=== PATIENT | female | born 2000 | race Caucasian/White ===

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

== ENCOUNTER 2021-05-31 17:02 | Emergency (ER) | payer OTHER, SELFPAY ==
--- NOTE | ~2021-05-31 | XR_ITS ---
EXAMINATION: XR wrist RT min 3V DATE: 05/31/2021 17:35 INDICATION: Right wrist injury and pain. TECHNIQUE: 4 views of right wrist were obtained. COMPARISON: None. FINDINGS: Bone alignment is normal. No fracture. Joint spaces are well maintained. IMPRESSION: 1. Normal right wrist. Reviewed, dictated and finalized at location A. IMPRESSION: 1. Normal right wrist.
--- NOTE | ~2021-05-31 | XR_ITS ---
EXAMINATION: XR hand RT min 3V DATE: 05/31/2021 17:35 INDICATION: Right hand pain. TECHNIQUE: 3 views of right hand were obtained. COMPARISON: None. FINDINGS: Bone alignment is normal. No fracture. Joint spaces are well maintained. IMPRESSION: 1. Normal right hand. Reviewed, dictated and finalized at location A. IMPRESSION: 1. Normal right hand.
[2021-05-31 17:09] VITALS: BP 129/82; PULSE 84; RESP 18; TEMP 36.2; O2SAT 100
--- NOTE | 2021-05-31 17:27 | ED.UPPEXIN ---
HPI - Extremity Injury (Upper) General Chief Complaint: Extremity Injury, Upper <SARAY Bee Last Filed: 05/31/21 18:32> Stated Complaint: wrist pain <SARAY Bee Last Filed: 05/31/21 18:32> Time Seen by Provider: 05/31/21 17:06 <SARAY Bee Last Filed: 05/31/21 18:32> Source: patient <SARAY Bee Last Filed: 05/31/21 18:32> Mode of arrival: ambulatory <SARAY Bee Last Filed: 05/31/21 18:32> Limitations: no limitations <SARAY Bee Last Filed: 05/31/21 18:32> History of Present Illness HPI narrative: This is a 20 year old female that presents to the ER for right wrist injury sustained early this morning. Reports she was hunting and her bow snapped back at her. Reports it hit the right wrist. Reports bruising and pain to the area. Denies decreased ROM or numbness. <SARAY Bee Last Filed: 05/31/21 18:32> Related Data Home Medications: Home Medications Medication Instructions Recorded Confirmed aspirin 81 mg tablet,delayed 81 mg PO DAILY 01/15/21 01/15/21 release drospirenone (contraceptive) 4 mg 4 mg PO DAILY 01/15/21 01/15/21 (28) tablet <SARAY Bee Last Filed: 05/31/21 18:32> Allergies/Adverse Reactions: Allergies Allergy/AdvReac Type Severity Reaction Status Date / Time Penicillins Allergy Unknown Hives Verified 05/31/21 17:11 <SARAY Bee Last Filed: 05/31/21 18:32> Review of Systems Review of Systems: CONSTITUTIONAL: Denies fever MUSCULOSKELETAL: Reports joint pain, and myalgia. NEUROLOGIC: Denies numbness <SARAY Bee Last Filed: 05/31/21 18:32> All systems reviewed & are unremarkable except as noted in HPI and below <SARAY Bee Last Filed: 05/31/21 18:32> [facility] Past Medical History Medical History: Medical History Anxiety Asthma Chronic pain of right wrist Environmental allergies Factor V deficiency <Angella Pitt PA-C - Last Filed: 05/31/21 18:32> Surgical History Surgical History: Surgical History History of placement of ear tubes 2001 <Angella Pitt PA-C - Last Filed: 05/31/21 18:32> Family History Family History: Family History Father Hypertension Mother Hypertension Depression Anxiety Sibling Diabetes mellitus Hypertension Anxiety Depression Grandparent Cerebrovascular accident <Angella Pitt PA-C - Last Filed: 05/31/21 18:32> Social History Social History: Social History Smoking status: Never smoker Alcohol intake: never Substance use: never Substance use type: does not use <Angella Pitt PA-C - Last Filed: 05/31/21 18:32> Exam Narrative: GENERAL: Well-appearing, well-nourished, and in no acute distress. HEAD: Normocephalic, atraumatic. EYES: EOMI. EXTREMITIES: Normal range of motion. No edema or obvious deformity. Normal radial pulses. Normal sensation SKIN: Warm, dry, no rash. NEURO: No focal deficits. Alert and oriented x3. 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 I was available for evaluation and consultation, I agree with the documentation as above <Juan David Murillo MD - Last Filed: 05/31/21 18:33> Vital Signs Vital signs: Vital Signs Temperature 36.2 C L 05/31/21 17:09 Pulse Rate 84 05/31/21 17:09 Respiratory Rate 18 05/31/21 17:09 Blood Pressure 129/82 05/31/21 17:09 Pulse Oximetry 100 05/31/21 17:09 Temperature 36.2 C L 05/31/21 17:09 Pulse Rate 84 05/31/21 17:09 Respiratory Rate 18 05/31/21 17:09
== END 2021-05-31 18:55 | disposition home or self-care (01) ==
PROVIDERS: Emergency Provider Emergency Medicine; PCP Family Medicine
DX: S60.211A Contusion of right wrist, initial encounter (principal); J45.909 Unspecified asthma, uncomplicated; D68.2 Hereditary deficiency of other clotting factors; Z79.82 Long term (current) use of aspirin; W22.8XXA Striking against or struck by other objects, initial encounter
CPT/HCPCS: 73110; 73130; 99283

== ENCOUNTER 2022-04-23 13:34 | Outpatient (CLI) | payer OTHER, SELFPAY ==
--- NOTE | 2022-04-24 11:43 | WPDPFTINT ---
PFT Procedure Performed PFT Procedure Performed Spirometry with Pre/Post Bronchodilator Plethysmography (Lung Vol) Diffusing Cap (DLCO) Flow Vol Loop PFT Interpretation Lung volumes were measured with the body plethysmography method. Lung volumes are unremarkable. Spirometry showed normal FVC and FEV1 but diminished mid expiratory flow rates and a diminished FEV1 to FVC ratio of 75% suggestive of mild obstructive airway disease. Following administration of a bronchodilator there was a borderline increase in FEV1 but the ratio FEV1/FVC increased to 81%. Lung diffusion capacity is within the normal range at 96% predicted. The flow volume loop is consistent with obstructive airway disease in the form of small airway dysfunction. Impression: Probable mild obstructive airway disease in the form of small airway disease with no significant response to bronchodilators. Lung diffusion capacity within the normal range.
== END 2022-04-23 13:35 | disposition home or self-care (01) ==
LOC: ANHPFT 13:35
PROVIDERS: PCP Family Medicine; Visit Provider Family Medicine
DX: J45.909 Unspecified asthma, uncomplicated (principal); Z87.09 Personal history of other diseases of the respiratory system; R94.2 Abnormal results of pulmonary function studies
CPT/HCPCS: 94060; 94726; 94729

== ENCOUNTER 2023-01-20 11:50 | Outpatient (CLI) | payer OTHER, SELFPAY ==
--- NOTE | ~2023-01-20 | XR_ITS ---
Left ankle Technique: AP, oblique, and lateral views were obtained. Clinical History: Swelling, difficulty ambulating Findings: No acute fracture or dislocation is seen. Osseous alignment is anatomic. Ankle mortise and other visualized joint spaces are preserved. Soft tissues are otherwise unremarkable. Impression: Unremarkable left ankle. Reviewed, dictated and finalized at location . Impression: Unremarkable left ankle.
--- NOTE | ~2023-01-20 | XR_ITS ---
Left foot Technique: AP, oblique, and lateral views were obtained. Clinical History: Swelling, difficulty ambulating Findings: No acute fracture or dislocation is seen. Osseous alignment is anatomic. Joint spaces are p reserved without erosive or degenerative change. Soft tissues are unremarkable. Impression: Unremarkable left foot radiographs. Reviewed, dictated and finalized at [facility]. Impression: Unremarkable left foot radiographs.
== END 2023-01-20 11:51 | disposition home or self-care (01) ==
PROVIDERS: PCP Family Medicine; Visit Provider Nurse Practitioner Psychiatric/Mental Health
DX: M79.672 Pain in left foot (principal)
CPT/HCPCS: 73610; 73630

== ENCOUNTER 2023-03-27 11:07 | Emergency (ER) | payer OTHER, SELFPAY ==
[2023-03-27] VITALS (9 sets, daily range): BP systolic 103–147; BP diastolic 71–101; PULSE 79–99; RESP 13–18; TEMP 36.3; O2SAT 97–100
--- NOTE | ~2023-03-27 | XR_ITS ---
EXAMINATION: XR chest 2V DATE: 03/27/2023 12:30 INDICATION: Shortness of breath TECHNIQUE: AP and lateral views of the chest are obtained. COMPARISON: None available FINDINGS: There are minimal airspace opacities of the left lower lobe. No pleural effusion or pneumot horax. The cardiomediastinal silhouette is normal. The visualized bones and soft tissues are unremark able. IMPRESSION: 1. Minimal airspace opacities of the left lower lobe, likely pneumonia. Reviewed, dictated and finalized at location A.
--- NOTE | 2023-03-27 11:44 | ECG_ITS ---
Measurements Intervals [place] Rate: 86 P: 26 OK: 135 QRS: 72 QRSD: 97 T: 35 QT: 375 QTc: 451 Interpretive Statements SINUS RHYTHM NONSPECIFIC T-WAVE ABNORMALITY ABNORMAL ECG NO PREVIOUS ECG AVAILABLE FOR COMPARISON Electronically Signed On 03-27-2023 12:42:43 CDT by Paddy Anaya M.D.
[2023-03-27 11:57] LABS: Basophils Absolute Auto 0.1 K/mm3 (0.0-0.1); Basophils Percent Auto 0.8 % (0.2-1.2); Eosinophils Absolute Auto 0.5 K/mm3 (0-0.3); Eosinophils Percent Auto 4.4 % (0-4.4); Hematocrit 43.9 % (37.0-47.0); Hemoglobin 14.2 g/dL (12.0-15.0); Immature Granulocyte Absolute 0.03 K/mm3 (0.00-0.031); Immature Granulocyte Percent A 0.3 % (0-0.5); Lymphocytes Absolute Auto 4.41 K/mm3 (0.9-3.2); Lymphocytes Percent Auto 40.2 % (18.3-44.2); Mean Corpuscular HGB Conc 32.3 g/dl (32-36); Mean Corpuscular Hemoglobin 28.1 pg (26-34); Mean Corpuscular Volume 86.8 fl (80-100); Mean Platelet Volume 10.6 fl (7.4-10.4); Monocytes Absolute Auto 0.8 K/mm3 (0.1-0.6); Monocytes Percent Auto 7.5 % (2.6-8.5); Neutrophils Absolute Auto 5.1 K/mm3 (1.3-6.7); Neutrophils Percent Auto 46.8 % (45.5-73.1); Platelet Count Result 379 k/mm3 (150-375); Red Blood Count 5.06 M/mm3 (4.2-5.4)
--- NOTE | 2023-03-27 12:12 | ED.SOB ---
HPI - SOB/Dyspnea General Chief Complaint: Shortness of Breath/Dyspnea Stated Complaint: hard to breath Time Seen by Provider: 03/27/23 11:27 Source: patient Mode of arrival: ambulatory Limitations: no limitations History of Present Illness HPI Narrative: Patient is a 22-year-old female who presents to the ED with report of shortness of breath. Patient reports having fairly constant feelings of shortness of breath over the last few days. She states that she feels as though it is difficult to take a deep breath. Denies actual pain with taking a deep breath. She feels like something is pressing on her chest which somewhat restricts her breathing. She has a Hx of asthma and has been using her inhaler more than usual over the last couple of days. She does report having a mild cough over the last couple of days, denies fevers. Denies lower extremity pain or swelling. Denies significant congestion. Denies abdominal pain, nausea, vomiting. Patient has history of factor V Leiden and takes aspirin 81 mg daily. She has never had a blood clot/PE/DVT, but was sent here from urgent care to rule out PE. Related Data Home Medications Medication Instructions Recorded Confirmed aspirin 81 mg tablet,delayed 81 mg PO DAILY 01/15/21 07/21/22 release drospirenone (contraceptive) 4 mg 4 mg PO DAILY 01/15/21 07/21/22 (28) tablet (Slynd) bupropion HCl 150 mg 24 hr tablet, 150 mg PO QAM 04/09/22 07/21/22 extended release citalopram 10 mg tablet 10 mg PO DAILY 07/21/22 07/21/22 Allergies Allergy/AdvReac Type Severity Reaction Status Date / Time Penicillins Allergy Unknown Hives Verified 03/27/23 11:43 Review of Systems Review of Systems: CONSTITUTIONAL: Denies fever, chills, or sweats. ENT: Denies rhinorrhea, congestion, sore throat. CARDIOVASCULAR: See HPI. RESPIRATORY: See HPI. GASTROINTESTINAL: Denies abdominal pain, nausea, vomiting. All systems reviewed & are unremarkable except as noted in HPI and below PMFSH Past Medical History Medical History ADHD Anxiety Asthma Chronic pain of right wrist Environmental allergies Factor V deficiency History of COVID-19 03/2021, 08/2021 PCOS (polycystic ovarian syndrome) Surgical History Surgical History History of placement of ear tubes 2001 Family History Family History Father Hypertension Mother Hypertension Depression Anxiety Sibling Diabetes mellitus Hypertension Anxiety Depression Grandparent Cerebrovascular accident Social History Social History Smoking status: Never smoker Alcohol intake: never Substance use: never Substance use type: does not use Lack of Transportation: No Lack of Food: Never True Current Housing: I Have Housing Concerned About Future Housing: No Difficulty Paying Gas/Electric Bills: YES Difficulty Paying for Meds: No Currently Unemployed: No Education: Associate Degree Difficulty w/ Childcare or Family Care: No Living arrangements: with family Occupation/Education: occupation Gender identity (if verbalized by the patient): Female Agree to blood products: Yes Exam Narrative: GENERAL: Well appearing, obese with a BMI of 37.1, non-toxic, in no acute distress. HEAD: Normocephalic, atraumatic. NECK: Supple. No adenopathy, no masses. RESPIRATORY: Airway patent, respirations nonlabored. Clear to auscultation bilaterally, no rales, rhonchi, wheezing. No significant focal lung sounds. CARDIOVASCULAR: Regular rate and rhythm without murmurs, rubs, or gallops. Radial pulses 2+ and equal bilaterally. ABDOMINAL: Soft, nontender, nondistended, no hepatosplenomegaly. Normoactive BS. MUSCULOSKELETAL: Moves all extremities. Strength/ROM intact without gross deform
[2023-03-27 12:27] LABS: Appearance Urine Clear (Clear); Bacteria Urine None Seen /hpf; Bilirubin Urine Negative (Negative); Blood Urine 3+ (Negative); Color Urine Yellow (Yellow); Glucose Urine UA Negative (Negative); Ketones Urine Negative (Negative); Leukocyte Esterase Ur Negative LEU/UL (Negative); Nitrate Urine Negative (Negative); Non Pathogenic Casts 0-2; Protein Urine Negative (Negative); Specific Grav Ur 1.003 (1.001-1.035); Squamous Epithelial Cell Urine None seen /hpf (Few); Urobilinogen Urine 0.2 mg/dL (<2.0); WBC Urine 0-5 /hpf
[2023-03-27 12:29] LABS: Add Urine Microscopic? YES
[2023-03-27 12:37] LABS: Troponin I < 0.012 ng/mL (0.000-0.034)
[2023-03-27 12:44] LABS: D Dimer 0.38 ug/mL (<0.48)
[2023-03-27 12:49] LABS: Alanine Aminotransferase 24 U/L (6-35); Albumin Level 4.7 g/dL (3.5-5.1); Alkaline Phosphatase 51 U/L (38-126); Anion Gap 9 mmol/L (8-16); Aspartate Amino Transferase 28 U/L (14-36); Bilirubin,Total 0.4 mg/dL (0.2-1.3); Blood Urea Nitrogen 6 mg/dL (7-17); Calcium 9.4 mg/dL (8.4-10.2); Carbon Dioxide 20 mmol/L (22-30); Chloride 107 mmol/L (98-107); Estimated CRCL calculation 147 ml/min; Estimated Glomerular Filt Rate > 60; Glucose 91 mg/dL (65-110); Potassium 3.7 mmol/L (3.4-5.0); Sodium 136 mmol/L (137-145)
== END 2023-03-27 14:17 | disposition home or self-care (01) ==
PROVIDERS: Preventive Medicine Aerospace Medicine; Emergency Provider Physician Assistant; PCP Family Medicine
DX: J18.9 Pneumonia, unspecified organism (principal); R06.00 Dyspnea, unspecified; R07.9 Chest pain, unspecified; J45.909 Unspecified asthma, uncomplicated; D68.51 Activated protein C resistance; E28.2 Polycystic ovarian syndrome; F90.9 Attention-deficit hyperactivity disorder, unspecified type; F41.9 Anxiety disorder, unspecified; Z86.16 Personal history of COVID-19; Z79.82 Long term (current) use of aspirin
CPT/HCPCS: 36415; 71046; 80053; 81001; 81025; 84484; 85025; 85380; 93005; 99284

== ENCOUNTER 2024-02-16 10:47 | Outpatient (CLI) | payer OTHER, SELFPAY ==
--- NOTE | ~2024-02-16 | MR_ITS ---
EXAMINATION: MR ankle RT wo con DATE: 02/16/2024 11:40 INDICATION: Right ankle sprain TECHNIQUE: Magnetic resonance imaging (MRI) of the right ankle was performed without intravenous cont rast. Sequences included sagittal, coronal, and axial proton-density weighted fast spin echo without and with fat saturation. COMPARISON: None. FINDINGS: Medial ankle ligaments: Deep and superficial deltoid ligaments as well as the spring ligament are normal. Lateral ankle ligaments: The anterior and posterior inferior tibiofibular ligaments are normal. There is mild thickening and m ild increased signal of the anterior talofibular ligament with mild surrounding edema consistent with moderate grade sprain. The calcaneofibular and posterior talofibular ligaments are normal. Tendons: Achilles tendon is normal. The peroneus longus and brevis tendons are normal. The tibialis anterior a nd extensor hallucis longus and extensor digitorum longus tendons are normal. Small amount of increas ed tenosynovial fluid extending along the normal tibialis posterior tendon sheath consistent with mil d tenosynovitis. The flexor digitorum longus and flexor hallucis longus tendons are normal. Plantar fascia: Plantar aponeurosis is normal. Bones/other: Bone alignment is normal. Small low signal intensity bone comment at the cuboid and lateral aspect of the talar dome. No reactive marrow edema, fracture or pathologic marrow replacing process. Joint spa long are normal. Fluid: Visualized amount fluid in the joint spaces. 14 x 11 x 7 mm multilobulated ganglion cyst extending at the posterolateral aspect of the ankle extending along the superficial margin of the posterior talof ibular ligament. IMPRESSION: 1. Moderate grade sprain of the anterior talofibular ligament. 2. Mild tenosynovitis along the normal tibialis posterior tendon. Reviewed, dictated and finalized at location B.
== END 2024-02-16 10:48 | disposition home or self-care (01) ==
PROVIDERS: PCP Family Medicine; Visit Provider Family Medicine
DX: S93.491A Sprain of other ligament of right ankle, initial encounter (principal); X58.XXXA Exposure to other specified factors, initial encounter
CPT/HCPCS: 73721

== ENCOUNTER 2024-03-29 15:45 | Outpatient (RCR) | payer OTHER, SELFPAY ==
--- NOTE | 2024-02-28 16:29 | OPREHPOC ---
Outpatient Therapy Plan of Care This is a Multidisciplinary Plan of Care that may contain components documented by all disciplines (PT, OT, and ST.) PT Problem 1 PT Problem #1 Knowledge Deficit PT Goal 1 Goal 1. Patient will perform independent HEP Target Visit 4 PT Problem 2 PT Problem #2 Pain PT Goal 1 Goal 1. Patient able to do all household and work related tasks with pain no higher than 1/10 Target Visit 10 PT Problem 3 PT Problem #3 Impaired Strength PT Goal 1 Goal 1. Patient will demo 5/5 right ankle strength in all planes in order to perform normal work function Target Visit 10 PT Problem 4 PT Problem #4 Impaired Range of Motion PT Goal 1 Goal 1. Patient will demo ankle range of motion equal to left in all planes Target Visit 10 PT Problem 5 PT Problem #5 Edema PT Goal 1 Goal 1. Figure 8 measurement will equal left Target Visit 10
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
--- NOTE | 2024-04-05 14:30 | PCPTNOTE ---
Patient canceled due to having class and meeting.
--- NOTE | 2024-04-12 16:11 | PCPTNOTE ---
Patient no showed to appointment this date. Called and spoke with patient stating she will not be able to come anytime before 4:00 in the future due to class schedule. Patient did state she could possibly come Wednesday- in the future. Patient will need future appointments rescheduled due to conflicting class schedule.
--- NOTE | 2024-04-24 13:24 | PCPTNOTE ---
Pt. no showed/no call this date.
--- NOTE | 2024-05-01 13:13 | PCPTNOTE ---
Patient called to cancel appointment 05/01/24 due to kidney stones.
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
--- NOTE | 2024-05-10 09:03 | PTOPDC ---
Assessment and note entered by Jessica Oden, DPT Evaluation Information Assessment Status Discharge - Pt Not Present ICD-10 Condition Codes (PT) M25.571 Other ICD-10 Condition Codes ( s93.499A, m25.371 PT) Subjective Information - Assessment PT Clinical Summary Patient has not attended therapy since 03/29/24 and has cancelled or no showed 6 appointments. Per attendance policy she will be discharged this date . Plan of Care PT Services Indicated No
== END 2024-05-10 09:39 | disposition home or self-care (01) ==
LOC: ANHGOSHPT 15:45
PROVIDERS: PCP Family Medicine; Visit Provider Orthopaedic Surgery
DX: S93.4 Sprain of ankle (principal); M25.371 Other instability, right ankle
CPT/HCPCS: 97110; 97161; 97530

== ENCOUNTER 2024-06-13 13:37 | Outpatient (CLI) | payer OTHER, SELFPAY ==
[2024-06-13 14:38] LABS: Strep Group A RT-PCR NOT DETECTED (Negative)
== END 2024-06-13 13:38 | disposition home or self-care (01) ==
LOC: ANHLAB 13:39
PROVIDERS: PCP Family Medicine; Visit Provider Family Medicine
DX: J02.9 Acute pharyngitis, unspecified (principal)
CPT/HCPCS: 87651

== ENCOUNTER 2024-11-21 09:23 | Outpatient (CLI) | payer OTHER, SELFPAY ==
--- OUTSIDE RECORDS SUMMARY | 2024-11-21 10:14 | XMS_ITS | Clinical Summary ---
Author Organization [facility] Address [address] [place] [address] Care Team Providers Care Field Irrigation Worker Name Role Phone Unavailable Primary Care Provider Unavailabl e Social History Tobacco Use Types Packs/Day Years Used Date Smoking Tobacco: Never Assessed Comments Unknown Sex and Gender Information Value Date Recorded Sex Assigned at Not on file Legal Sex Female 1:11 PM CDT Gender Identity Not on file Sexual Orientation Not on file Plan of Treatment Health Maintenance Due Date Last Done Comments Hepatitis C Virus (HCV) Screening 2000 Pap Smear 2021 Influenza Immunization (#1) 04/16/202408/18, 08/25/2016, 2015, Additional history exists SARS-COV-2 Immunization ( season) 2024 Respiratory Syncytial Virus (RSV) Immunization (Adult) (1 - 1-dose 75+ series) 2075 Hepatitis B Immunization Completed 001, 2000, 2000 Pneumococcal Immunization Combined Aged Out 11/23/2001, 02/11/2001, 2000, Additional history exists No longer eligible based on patient's age to complete this topic DTaP/Tdap/Td Immunization Discontinued 2011, 12/01/2005, 02/24/2002, Additional history exists TdaP Immunization Completed 12/08/2011 Human Papillomavirus (HPV) Immunization Completed 06/08/2013, 02/06/2013, 12/07/2012 Meningococcal Immunization (ACWY) Completed 09/14/2017, 09/14/2017, 12/07/2012 Rotavirus Immunization Aged Out No lo nger eligible based on patient's age to complete this topic
--- OUTSIDE RECORDS SUMMARY | 2024-11-21 10:14 | XMS_ITS ---
Author Organization [facility] Address [address] [place] [address] Care Team Providers Care Tie Up Worker Name Role Phone Richelle Wong Primary Care Provider [phone] Allergies Allergen (clinical drug ingredient) Drug/Non Drug Allergy documented on EMR Reaction Allergy Type Onset Date Status Penicillin Unknown Drug Allergy Active REASON FOR VISIT r/s from 07/10/24--Last seen 01/24/2024 Medications Medication SIG (Take, Route, Frequency, Duration) Notes Start Date End Date Status Progesterone 100 MG as directed Orally hasn't be en taking, but will be back on soon 01/24/24 Active Aspirin 81 MG 1 tablet Orally Once a day for 30 day(s) Active hydrOXYzine HCl 10 MG 1-2 tablet as need ed for sleep Orally Once a day for 30 days Active Dulera 200-5 MCG/ACT as directed Inhalation Active Vyvanse 50 MG 1 capsule in the morning Orally Once a day for 30 days 07/20/2024 Active Escitalopram Oxalate 10 MG 1 tablet Orally Once a day for 30 days Active Social History Sex Assigned At : Social History Observation Description Sex Assigned At Female Encounters Encounter Location Date Provider Diagnosis [address] [address] 07/20/2024 Richelle Wong Generalized anxiety disorder F41.1 ; Depression F32.9 ; ADHD (attention deficit hyperactivity disorder) F90.9 and Medication monitoring encounter Z51.81 Assessments Encounter Date Diagnosis (ICD Code) Assessment Notes Treatment Notes Treatment Clinical Notes Section Notes 07/20/2024 Generalized anxiety disorder (ICD-10 - F41.1) Continue PRN Encouraged therapy 07/20/2024 Depression (ICD-10 - F32.9) [place] agreement to continue current regimen as client reports doing well. 07/20/2024 ADHD (attention deficit hyperactivity disorder) (ICD-10 - F90.9) Discussed controlled sub. PDMP checked with no concerns. May look to increase for concentration s/p cardiology appts if/as appropriate. Discussed r/b/se in length. 07/20/2024 Medication monitoring encounter (ICD-10 - Z51.81) 07/20/2024 Other Reasons, potential benefits, potential risks, interactions and side effects of all medications were discussed. The Patient/Guardian asked appropriate questions, appeared to understand the answers, and decided to accept the treatment and continue being followed. Alternatives and expected course without treatment were reviewed. The Patient/Guardian is aware of the need to contact the office or return for an earlier appointment if any problems or concerns arise. May also contact the 24-hour crisis hotline ([facility]), refer to the closest emergency room or call 911 if new symptoms arise of existing symptoms worsen. The Patient/Guardian is aware that this would apply to symptoms like: suicidal ideation, homicidal ideation, high risk behaviors, manic symptoms, psychotic symptoms, physical symptoms, or any other symptoms that may be dangerous to self or others. Greater than 50% of time spent on coordination and counseling where psychopharmacology as well as psychotherapeutic interventions were discussed along with review of treatments in the past. Education provided concerning need for adequate hydration. Patient/Guardian verbalized understanding of education, treatment plan and follow up. This session was completed telephonically with client/parental/guard rafia consent: Unable to determine movement status, assess appearance, affect, AIMS, or vital signs. Plan Of Treatment Medication Medication Name Sig Start Date Stop Date Notes hydrOXYzine HCl 10 MG 1-2 tablet as need ed for sleep Orally Once a day for 30 days Vyvanse 50 MG 1 capsule in the mor kaitlynn Orally Once a day for 30 days 07/20/2024 Escitalopram Oxalate 10 MG 1 tablet Oral ly Once a day for 30 days Treatment Notes Assessment Notes Generalized anxiety disorder Continue PRN Encouraged therapy Depression [place] agreement to continue current regimen as client reports doing well. ADHD (attention deficit hype ractivity disorder) Discussed controlled sub. PDMP checked with no concerns. May look to increase for concentration s/p cardiology appts if/as appropriate. Discussed r/b/se in length. Other Reasons, potential benefits, potential risks, interactions and side effects of all medications were discussed. The Patient/Guardian asked appropriate questions, appeared to understand the answers, and decided to accept the treatment and continue being followed. Alternatives and expected course without treatment were reviewed. The Patient/Guardian is aware of the need to contact the office or return for an earlier appointment if any problems or concerns arise. May also contact the 24-hour crisis hotline ([facility]), refer to the closest emergency room or call 911 if new symptoms arise of existing symptoms worsen. The Patient/Guardian is aware that this would apply to symptoms like: suicidal ideation, homicidal ideation, high risk behaviors, manic symptoms, psychotic symptoms, physical symptoms, or any other symptoms that may be dangerous to self or others. Greater than 50% of time spent on coordination and counseling where psychopharmacology as well as psychotherapeutic interventions were discussed along with review of treatments in the past. Education provided concerning need for adequate hydration. Patient/Guardian verbalized understanding of education, treatment plan and follow up. This session was completed telephonically with client/parental/guardian consent: Unable to determine movement status, assess appearance, affect, AIMS, or vital signs. Next Appt Details Follow Up: 4 Weeks, Reason: Psych F/U, may be telehealth Progress Notes * Mei WONGOB: 0 (23 yo F)Acc No.[id number]:07/20/2024 Patient: Blossom VILLANUEVA Provider: Benito Wong, MSN, PAINT SPECIALIST, PATIENT SCHEDULING COORDINATOR-C :2000 A ge:23 Y S ex:Female Date:07/20/2024 Address:[address] [place] [address] , [facility] Subjective: * Chief Complaints: * r /s from 07/10/24--Last seen 01/24/2024 * HPI: D epression Screening: PHQ-9 L ittle interest or pleasure in doing things N ot at all, F eeling down, depressed, or hopeless S everal days, T rouble falling or staying asleep, or sleeping too much N early every day, F eeling tired or having little energy More than half the days, P oor appetite or overeating N ot at all, F eeling bad about yourself or that you are a failure, or have let yourself or your family down S everal days, T rouble concentrating on things, such as reading the newspaper or watching television M ore than half the days, M oving or speaking so slowly that other people could have noticed; or the opposite, being so fidgety or restless that you have been moving around a lot more than usual N ot at all, T houghts that you would be better off or of hurting yourself in some way N ot at all, T otal Score 9 , I nterpretation M ild Depression. I ntervention D epression Screening Findings P ositive, F ollow-Up for Depression N o Referral necessary, patient involved in behavioral health treatment .. S creening: [place]arton Suicide Severity Rating Scale (LF) D o you want to initiate with S creener form, 1 . Wish to be : Have you wished you were or wished you could go to sleep and not wake up? N o, 2 . Suicidal Thoughts: Have you actually had any thoughts of killing yourself? N o, 6 . Suicide Behaviour: Have you ever done anything,started to do anything, or prepared to end your life? N o, I nterpretation: L ow Risk. C SSRS Interpretation and Follow Up Plan: CSSRS Interpretation and Follow Up Plan. CSSRS Interpretation and Follow Up Plan C SSRS Screen documented using SF Y es, M oderate or High risk requires selection of a follow up plan C SSRS No/Low: intervention not needed at this time. P sychiatric Assessment - Current Symptoms: How ct. doing today? Client is a 23 yo F on the phone today stating things have been going okay. We are finishing up finals week in school. I am finishing up being sick with the flu. States has been seen by can crimper and has tests coming up. Depression: 2/10 Anxiety: 5/10 I get bad days, but still a lot better than before. Social: Has been out with friends at school events, talking with friends/family Reports continuing to work part-time at [employer] and in school Therapy: With her school, yes Anger/irritability: Denies Sleep: Still bad, but I also haven't been able to take the hydroxyzine because finals and not wanting to be tired, so it is on my, because it is good when I take it. Energy: All over the place really, but I am always on the go, busy. Concentration: Fair. Some days are better than others. Definitely night and day if I don't take the Vyvanse, but it is not as good as it used to be. Appetite: That is fine. Hallucinations/paranoia: Denies Drugs/ETOH: Rare ETOH, socially with friends, maybe one drink every couple months. Denies SI/HI. Medical changes/concerns: Denies, I am f/u with can crimper though. They know about my medications and are fine with it currently. Monitoring to see about POTS. . * ROS: P sych ROS: Constitutional D enies. E yes D enies. E ars/Nose/Mouth/Throat D enies. R espiratory D enies. A llergic/Immunologic D enies.?Cardiovascular D enies. G I D enies. G U D enies. M usculoskeletal D enies. N eurological D enies. I ntegumentary D enies. E ndocrine D enies.?Hematological/Lymphatic D enies. P sychiatric: Reports some trouble with concentration. * Medical History: * Surgical History: M yringotomy 2003, 2005 * Hospitalization/Major Diagno stic Procedure: * Family History: F ather: alive. M other: alive. 1 brother(s) , 1 sister(s) . . Mom: Bipolar, HTN, HLD, autoimmune disorder Dad: PTSD after war, unknown other medical history Siblings: ADHD, sister is prediabetic Family history of substance abuse including abusing stimulants per client. * Social History: P rimary Social History: L iving Arrangement L iving Arrangement: I ndependent Living lives in apartment with mom which client pays for, I s this a supportive environment? Y es. A lcohol Use A lcohol Use Frequency: M onthly or less. I llicit Substance Usage I llicit Substance Usage:?No. 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 * Medications: T akingDulera 200-5 MCG/ACT Aerosol as directed Inhalation Aspirin 81 MG Tablet Chewable 1 tablet Orally Once a day Progesterone 100 MG Capsule as directed Orally , Notes to Pharmacist: hasn't been taking, but will be back on soon 01/24/24ydrOXYzine HCl 10 MG Tablet 1-2 tablet as needed for sleep Orally Once a day Escitalopram Oxalate 10 MG Tablet 1 tablet Orally Once a day Vyvanse 50 MG Capsule 1 capsule in the morning Orally Once a day Medication List reviewed and reconciled with the patientTaking Dulera 200-5 MCG/ACT Aerosol as directed Inhalation Taking Aspirin 81 MG Tablet Chewable 1 tablet Orally Once a day Taking Progesterone 100 MG Capsule as directed Orally , Notes to Pharmacist: hasn't been taking, but will be back on soon 01/24/24Taking hydrOXYzine HCl 10 MG Tablet 1-2 tablet as needed for sleep Orally Once a day Taking Escitalopram Oxalate 10 MG Tablet 1 tablet Orally Once a day Taking Vyvanse 50 MG Capsule 1 capsule in the morning Orally Once a day Medication List reviewed and reconciled with the patient * Allergies: P enicillinno[Allergies Verified] Objective: * Vitals: * Examination: M ental Status Exam: SENSORIUM AND COGNITION Alert, Oriented to Person, Oriented to Place, Oriented to Time, Oriented to Situation. ATTENTION AND CONCENTRATION N o deficits. ATTITUDE AND BEHAVIOR Cooperative, Receptive. MEMORY Immediate, Recent, Remote. MOOD Euthymic. SPEECH QUANTITY Appropriate. SPEECH QUALITY Appropriate volume. THOUGHT PROCESS Coherent and goal directed. THOUGHT CONTENT Appropriate - WNL. SUICIDAL IDEATION Denies suicidal ideation. HOMICIDAL IDEATION Denies homicidal ideation. HALLUCINATIONS Denies hallucinations. INSIGHT Good. JUDGMENT Good. FUND OF KNOWLEDGE Good. ABILITY TO PARTICIPATE IN TREATMENT M oderate. WILLINGNESS TO PARTICIPATE IN TREATMENT High. E xam limited due to telephone eval. Assessment: * Assessment: 1. G eneralized anxiety disorder - F41.1 2 . D epression - F32.9 (Primary)? 3. A DHD (attention deficit hyperactivity disorder) - F90.9 4 .?Medication monitoring encounter - Z51.81 Plan: * Treatment: 2. G eneralized anxiety disorder Continue hydrOXYzine HCl Tablet, 10 MG, 1-2 tablet as needed for sleep, Orally, Once a day, 30 days, 60, Refills 0. Notes: Continue PRN Encouraged therapy 3. A DHD (attention deficit hyperactivity disorder) Refill Vyvanse Capsule, 50 MG, 1 capsule in the morning, Orally, Once a day, 30 days, 30 Capsule, Refills 0. Notes: Discussed controlled sub. PDMP checked with no concerns. May look to increase for concentration s/p cardiology appts if/as appropriate. Discussed r/b/se in length. 4. O thers Notes: Reasons, potential benefits, potential risks, interactions and side effects of all medications were discussed. The Patient/Guardian asked appropriate questions, appeared to understand the answers, and decided to accept the treatment and continue being followed. Alternatives and expected course without treatment were reviewed. The Patient/Guardian is aware of the need to contact the office or return for an earlier appointment if any problems or concerns arise. May also contact the 24-hour crisis hotline ([facility]), refer to the closest emergency room or call 911 if new symptoms arise of existing symptoms worsen. The Patient/Guardian is aware that this would apply to symptoms like: suicidal ideation, homicidal ideation, high risk behaviors, manic symptoms, psychotic symptoms, physical symptoms, or any other symptoms that may be dangerous to self or others. Greater than 50% of time spent on coordination and counseling where psychopharmacology as well as psychotherapeutic interventions were discussed along with review of treatments in the past. Education provided concerning need for adequate hydration. Patient/Guardian verbalized understanding of education, treatment plan and follow up. This session was completed telephonically with client/parental/guardian consent: Unable to determine movement status, assess appearance, affect, AIMS, or vital signs. * Recommended Wellness and Pre vention Guidelines: * S tatus A yuli L ast Done N ext Due A ction Taken N ONCOMPLIANT C ervical cancer screening - 1 09/20/2023 - N ONCOMPLIANT H IV screening - 1 09/20/2023 - * Procedure Codes: * Follow Up: 4 Weeks (Reason: Psych F/U, may be telehealth) * * ROLLER OPERATOR HOT MIX Sign off status: Completed true * Provider: Benito Wong, MSN, PAINT SPECIALIST, PATIENT SCHEDULING COORDINATOR-C Date: 09/20/2023 Generated for Zaheeri kailey/Gentry/eTransmitting on: 0 11/21/2024 10:14 AM CDT History and Physical Notes * HPI (History of Present Illness) Category Sub-Category Detail Notes Category Not es Depression Screening PHQ-9 Little inte rest or pleasure in doing things: Not at all Feeling down, depressed, or hopeless: Se veral days Trouble falling or staying asleep, or sl eeping too much: Nearly every day Feeling tired or having little energy: M ore than half the days Poor appetite or overeating: Not at all Feeling bad about yourself o r that you are a failure, or have let yourself or your family down: Several days Trouble concentrating on thi ngs, such as reading the newspaper or watching television: More than half the days Moving or speaking so slowly that other people could have noticed; or the opposite, being so fidgety or restless that you have been moving around a lot more than usual: Not at all Thoughts that you would be b markus off or of hurting yourself in some way: Not at all Total Score: 9 Interpretation: Mild Depression Intervention Depression Screening Findings: P ositive Follow-Up for Depression: No Referral necessary, patient involved in behavioral health treatment . Psychiatric Assessment - Current Symptoms How ct. doing today? Client is a 23 yo F on the phone today stating things have been going okay. We are finishing up finals week in school. I am finishing up being sick with the flu. States has been seen by can crimper and has tests coming up. Depression: 09/25 Anxiety: 12/23 I get bad days, but still a lot better than before. Social: Has been out with friends at school events, talking with friends/family Reports continuing to work part-time at [employer] and in school Therapy: With her school, yes Anger/irritability: Denies Sleep: Still bad, but I also haven't been able to take the hydroxyzine because finals and not wanting to be tired, so it is on my, because it is good when I take it. Energy: All over the place really, but I am always on the go, busy. Concentration: Fair. Some days are better than others. Definitely night and day if I don't take the Vyvanse, but it is not as good as it used to be. Appetite: That is fine. Hallucinations/paranoia: Denies Drugs/ETOH: Rare ETOH, socially with friends, maybe one drink every couple months. Denies SI/HI. Medical changes/concerns: Denies, I am f/u with can crimper though. They know about my medications and are fine with it currently. Monitoring to see about POTS. Screening [place]arton Suicide Severity Rating Scale (LF) Do you want to initiate with: Screener form 1. Wish to be : Have you wished you were or wished you could go to sleep and not wake up?: No 2. Suicidal Thoughts: Have you actually had any thoughts of killing yourself?: No 6. Suicide Behavior Question: Have you ever done anything,started to do anything, or prepared to end your life?: No Interpretation:: Low Risk Do Not Use CSSRS Interpretation and Follow Up Plan CSSRS Interpretation and Follow Up Plan CSSRS Screen documented using SF: Yes Moderate or High risk requir es selection of a follow up plan: CSSRS No/Low: intervention not needed at this time Examination Category Sub-Category Detail Notes Category Not es Mental Status Exam SENSORIUM AND COGNITION Alert, Oriented to Person, Oriented to Place, Oriented to Time, Oriented to Situation Exam limited due to telephone eval ATTENTION AND CONCENTRATION No deficits ATTITUDE AND BEHAVIOR Cooperative, Associate Professor Plant Pathology tive MEMORY Immediate, Recent, R emote MOOD Euthymic SPEECH QUANTITY Appropriate SPEECH QUALITY Appropriate volume THOUGHT PROCESS Coherent and goal di rected THOUGHT CONTENT Appropriate - WNL SUICIDAL IDEATION Denies suicidal idea tion HOMICIDAL IDEATION Denies homicidal leif ation HALLUCINATIONS Denies hallucination s INSIGHT Good JUDGMENT Good FUND OF KNOWLEDGE Good ABILITY TO PARTICIPATE IN TREATMENT Mode rate WILLINGNESS TO PARTICIPATE IN TREATMENT High
--- OUTSIDE RECORDS SUMMARY | 2024-11-21 10:14 | XMS_ITS | Clinical Summary ---
Author Organization [facility] [address] [facility] [address] [facility] [address] [place] [address] Care Team Providers Care Eight Section Blower Name Role Phone Patricia Almaraz MD Primary Care Provider Allergies Active Allergy Reactions Criticality Noted Date Comments Penicillins Hives Medium 02/08/2024 Medications No known medications Social History Tobacco Use Types Packs/Day Years Used Date Smoking Tobacco: Never Assessed Personal Safety Answer Date Recorded Have you ever been in or are you currently in a harmful physical or emotional relationship or is someone making you feel afraid or unsafe? 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 Gender Identity Not on file Sexual Orientation Not on file Obstetrics History Last Filed Vital Signs Vital Sign Reading Time Taken Comments Blood Pressure 141/86 02/08/2024 9:16 PM CDT Pulse 114 02/08/2024 9:16 PM CDT Temperature 36.8 C (98.2 F) 02/08/2024 9:16 PM CDT Respiratory Rate 18 02/08/2024 9:16 PM CDT Oxygen Saturation 100% 02/08/2024 9:16 PM CDT Inhaled Oxygen Concentration - - Weight 95.3 kg (210 lb) 02/08/2024 9:16 PM CDT Height 170.2 cm (5' 7 ) 02/08/2024 9:16 PM CDT Body Mass Index 32.89 02/08/2024 9:16 PM CDT Plan of Treatment Health Maintenance Due Date Last Done Comments Cervical Cancer Screening 2000 Depression Screening 2000 Hepatitis C Screening 2000 Regular Well Visit/Exam 18-64 2018 Covid-19 Vaccine (2023-2 5 season) 2024 01/25/2023, 05/24/2022 Influenza Vaccine (#1) 2024 , 09/14/2017, 08/25/2016, Additional history exists DTaP/Tdap/Td Vaccine (8 - Td or Tdap) 01/19/2032 01/18/2022, 12/08/2011, 12/01/2005, Additional history exists Hepatitis B Screening Completed 05/13/2001 , 2000, 2000 Pneumococcal vaccine <65 Completed 002, 02/11/2001, 2000, Additional history exists Varicella Vaccines Completed 06/04/2008, 08/12/2001 HPV Vaccines Completed 06/08/2013, 01/15, 12/07/2012 Insurance [id number] Care Teams Eight Section Blower Relationship Specialty Start Date End Date Patricia Almaraz MD PCP - General Family Practice 07/28/22
--- OUTSIDE RECORDS SUMMARY | 2024-11-21 10:14 | XMS_ITS | Referral Summary ---
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
--- OUTSIDE RECORDS SUMMARY | 2024-11-21 10:14 | XMS_ITS | Patient Health Record ---
Author Organization [facility] Address [address] [place] [address] Care Team Providers Care Culture Room Worker Name Role Phone Richelle Wong Primary Care Provider Connie Peck [phone] Allergies Allergen (clinical drug ingredient) Drug/Non Drug Allergy documented on EMR Reaction Allergy Type Onset Date Status Penicillin Unknown Drug Allergy Active Results Component Value Reference Range Notes 12 Panel Urine Drug Screen Reviewed date:02/10/2024 09:19:28 AM Interpretation: Performing Lab: Notes/Report: THC N MANDO N MOP (OPI) N AMP P MET N BAR N BZO N MDMA N MTD N OXY N PCP N BUP N Reason For Referral No Information Medications Medication SIG (Take, Route, Frequency, Duration) Notes Start Date End Date Status Vyvanse 50 MG 1 capsule in the morning Orally Once a day for 30 days 10/12/2024 Active Vyvanse 50 MG 1 capsule in the morning Orally Once a day for 30 days 09/14/2024 Active Dulera 200-5 MCG/ACT as directed Inhalation Active Aspirin 81 MG 1 tablet Orally Once a day for 30 day(s) Active Progesterone 100 MG as directed Orally hasn't be en taking, but will be back on soon 01/24/24 Active hydrOXYzine HCl 10 MG 1-2 tablet as need ed for sleep Orally Once a day for 30 days Active Vyvanse 50 MG 1 capsule in the morning Orally Once a day for 30 days 08/17/2024 Active Escitalopram Oxalate 10 MG 1 tablet Orally Once a day for 30 days Active Social History Tobacco Use: Social History Observation Description Date Details (start date - stop date) Never Smoker NA - NA Sex Assigned At : Social History Observation Description Sex Assigned At Female Dont use, Tobacco Use/Smoking Question Answer Notes Are you a nonsmoker Tobacco Control (Standard) Question Answer Notes Tobacco use: Nonsmoker Additional Findings: Tobacco non-user Current no nsmoker Problems Problem Type SNOMED Code ICD Code Onset Dates Problem Status W/U Status Risk Notes Problem Generalized anxiety disorder (56612645) Generalized anxiety disorder (F41.1) Active confirmed Problem Depression (661762425) Depression (F32.9) Active confirmed Problem Attention deficit hyperactivity disorder (615535165) ADHD (attention deficit hyperactivity disorder) (F90.9) Active confirmed Vital Signs Heart Rate 79 /min 01/24/2024 Respiratory Rate 14 /min 01/24/2024 Blood pressure diastolic 76 mm Hg 01/24/2024 Oximetry 98 % 01/24/2024 Height 66 in 01/24/2024 Blood pressure systolic 110 mm Hg 01/24/2024 Weight 229 lbs 01/24/2024 BMI 36.96 kg/m2 01/24/2024 Encounters Encounter Location Date Provider Diagnosis [address] [address] 02/07/2024 Richelle Wong [address] [address] 01/24/2024 Richelle Wong Generalized anxiety disorder F41.1 ; Depression F32.9 ; ADHD (attention deficit hyperactivity disorder) F90.9 and Medication monitoring encounter Z51.[address] [address] 07/20/2024 Richelle Wong Generalized anxiety disorder F41.1 ; Depression F32.9 ; ADHD (attention deficit hyperactivity disorder) F90.9 and Medication monitoring encounter Z51.81 [address] [place] [address] 08/15/2024 Richelle Wong Generalized anxiety disorder F41.1 ; Depression F32.9 ; ADHD (attention deficit hyperactivity disorder) F90.9 and Medication monitoring encounter Z51.81 Replaced By [facility] [address] [place] [address] 12/28/2023 Richelle Wong Depression F32.9 ; ADHD (attention deficit hyperactivity disorder) F90.9 and Generalized anxiety disorder F41.[address] [address] 02/03/2024 Richelle Katznnan [address] [address] 03/03/2024 Richelle Katznnan [address] [address] 07/03/2024 Richelle Wong Depression F32.9 and ADHD (attention deficit hyperactivity disorder) F90.[address] [address] 07/14/2024 Connie Peck ADHD (attention deficit hyperactivity disorder) F90.9 and Depression F32.9 Assessments Encounter Date Diagnosis (ICD Code) Assessment Notes Treatment Notes Treatment Clinical Notes Section Notes 12/28/2023 Depression (ICD-10 - F32.9) 01/24/2024 Generalized anxiety disorder (ICD-10 - F41.1) Continue PRN Encouraged therapy 07/14/2024 ADHD (attention deficit hyperactivity disorder) (ICD-10 - F90.9) 07/20/2024 Generalized anxiety disorder (ICD-10 - F41.1) Continue PRN Encouraged therapy 08/15/2024 Generalized anxiety disorder (ICD-10 - F41.1) Continue PRN Encouraged therapy 07/03/2024 Depression (ICD-10 - F32.9) 07/03/2024 ADHD (attention deficit hyperactivity disorder) (ICD-10 - F90.9) 07/14/2024 Depression (ICD-10 - F32.9) 08/15/2024 Depression (ICD-10 - F32.9) [place] agreement to continue current regimen as client reports doing well. 07/20/2024 Depression (ICD-10 - F32.9) [place] agreement to continue current regimen as client reports doing well. 01/24/2024 Depression (ICD-10 - F32.9) [place] agreement to continue current regimen as client reports doing well. 12/28/2023 ADHD (attention deficit hyperactivity disorder) (ICD-10 - F90.9) 01/24/2024 ADHD (attention deficit hyperactivity disorder) (ICD-10 - F90.9) Discussed controlled sub. PDMP checked with no concerns. May look to decrease back to 40mg if fatigue continues. Discussed r/b/se in length. 07/20/2024 ADHD (attention deficit hyperactivity disorder) (ICD-10 - F90.9) Discussed controlled sub. PDMP checked with no concerns. May look to increase for concentration s/p cardiology appts if/as appropriate. Discussed r/b/se in length. 08/15/2024 ADHD (attention deficit hyperactivity disorder) (ICD-10 - F90.9) Discussed controlled sub. PDMP checked with no concerns. May fill . Discussed r/b/se in length. 12/28/2023 Generalized anxiety disorder (ICD-10 - F41.1) 08/15/2024 Medication monitoring encounter (ICD-10 - Z51.81) 07/20/2024 Medication monitoring encounter (ICD-10 - Z51.81) 01/24/2024 Medication monitoring encounter (ICD-10 - Z51.81) 01/24/2024 Other Reasons, potential benefits, potential risks, interactions [...] May also contact the 24-hour crisis hotline ([facility]), refer to the closest emergency [...] of education, treatment plan and follow up. 07/20/2024 Other Reasons, potential benefits, potential risks, [...] May also contact the 24-hour crisis hotline ([facility]), refer to the closest emergency [...] This session was completed telephonically with client/parental/guard raifa consent: Unable to determine movement status, assess appearance, affect, AIMS, or vital signs. 08/15/2024 Other Reasons, potential benefits, potential risks, interactions [...] May also contact the 24-hour crisis hotline ([facility]), refer to the closest emergency [...] AIMS, or vital signs. Plan Of Treatment No Information Insurance Providers Payer Name Payer Address Payer Phone Subscriber Number Group Number Insured Name Patient Relationship to Insured Coverage Start Date Coverage End Date [facility] Attn Claims Department [address] [place] [address] [phone] [id number] Blossom Wong Self - patient is the insured 2 [facility] Attn Claims Department [address] [place] [address] [phone] [id number] Blossom Wong Self - patient is the insured 2 Medical (General) History Medical History History ICD Code PCOS Factor V Scar tissue on lungs s/p COVID-19 Surgical History Surgery Date(Month/Year) Myringotomy 2003, 2005
--- OUTSIDE RECORDS SUMMARY | 2024-11-21 10:14 | XMS_ITS ---
Author Organization [facility] Address [address] [place] [address] Care Team Providers Care Road Machine Operator Name Role Phone Richelle Wong Primary Care Provider Connie Peck [phone] REASON FOR VISIT refills Medications Medication SIG (Take, Route, Frequency, Duration) Notes Start Date End Date Status Escitalopram Oxalate 10 MG 1 tablet Oral ly Once a day for 6 days Active Vyvanse 50 MG 1 capsule in the mor kaitlynn Orally Once a day for 6 days 07/14/2024 Active Social History Sex Assigned At : Social History Observation Description Sex Assigned At Female Encounters Encounter Location Date Provider Diagnosis [address] [place] [address] 07/14/2024 Connie Peck ADHD (attention deficit hyperactivity disorder) F90.9 and Depression F32.9 Assessments Encounter Date Diagnosis (ICD Code) Assessment Notes Treatment Notes Treatment Clinical Notes Section Notes 07/14/2024 ADHD (attention deficit hyperactivity disorder) (ICD-10 - F90.9) 07/14/2024 Depression (ICD-10 - F32.9) Plan Of Treatment Medication Medication Name Sig Start Date Stop Date Notes Escitalopram Oxalate 10 MG 1 tablet Oral ly Once a day for 6 days Vyvanse 50 MG 1 capsule in the mor kaitlynn Orally Once a day for 6 days 07/14/2024 Progress Notes * Mei WONGOB: 0 (23 yo F)Acc No.[id number]:07/14/2024 Patient: Blossom VILLANUEVA :2000 A ge:23 Y S ex:Female Address:[facility] [facility] [place], [address] * Refills Refill Escitalopram Oxalate Tablet, 10 MG, Orally, 6 Tablet, 1 tablet, Once a day, 6 days, Refills=0 Refill Vyvanse Capsule, 50 MG, Orally, 6 Capsule, 1 capsule in the morning, Once a day, 6 days, Refills=0 * true * Date: Generated for Lilia bonner/Gentry/Ckitting on: 0 11/21/2024 10:14 AM CDT
--- OUTSIDE RECORDS SUMMARY | 2024-11-21 10:15 | XMS_ITS | CONTINUITY OF CARE DOCUMENT ---
Author Name tanvijose tanvijose Address Unknown Organization [facility] Address [address] [address] [facility] [address] [place] [address] Phone [phone] Care Team Providers Care Die Cutter Diamond Name Role Phone Osvaldo ARBOLEDA, Shukri Unavailable Patricia Almaraz MD Unavailable [phone] Patricia Almaraz MD Unavailable PROBLEMS Condition Status Date Provider Notes Near Syncope active Shukri Riley MD Asthma active Suhkri Riley MD ADHD active Shukri Riley MD Orthostatic hypotension active Shukri Riley MD Palpitations active Shukri Riley MD ENCOUNTERS Date Type Provider Location Encounter Diag nosis - In-person encounter Office Visit Shukri Riley MD [place] [facility] Near SyncopeAsthmaADHDOrthostatic hypotensionPalpitations VITAL SIGNS Date Observation Value Provider weight E&M 197 [lb_av] Olga garibay Body Mass Index (Ratio) 30.85 kg/m2 Bladimir Riley MD blood pressure, diastolic 96 mm[Hg] Reema Bryan blood pressure, systolic 138 mm[Hg] Ariela Bryan oxygen saturation, oximetry 100 % Amy Bryan pulse rate 107 /min Amy Bryan respiratory rate E&M 12 /min Amy Bryan weight E&M 197 [lb_av] Amy Irvin height E&M 67 [in_i] Amy Bryan blood pressure, cuff size regular Reema Bryan ALLERGIES Allergy Name Onset Date Reaction Criticality Status PENICILLIN High Criticality active HISTORY OF MEDICATION USE Medication Status Instructions Dates Provider Indications Com ments albuterol sulfate 90 mcg/actuation HFA aerosol inhaler active Inhale 2 puff as directed every six hours shortness of breath Amy Irvin Dulera 200-5 mcg/actuation HFA aerosol inhaler active 1 puff as directed twice a day Amymaria fernanda Bryan escitalopram oxalate 10 mg tablet active TAKE 1 TABLET BY MOUTH EVERY DAY Amymaria fernanda Bryan Vyvanse 50 mg capsule active 1 capsule by mouth once a day Amymaria fernanda Bryan INSURANCE PROVIDERS Payer name Policy type / Coverage type [place] [employer] party ID [employer] (2) Medicaid [id number] ADVANCE DIRECTIVES Name Date DISCUSSED - NO DECISION MADE TREATMENT PLAN Date Name Performer Cardiology Shukri Riley MD Cardiology Shurki iRley MD Cardiology Shukri Riley MD Cardiology Shukri Riley MD Cardiology Shukri Riley MD Date Name CRP, high sensitivit y IRON AND TOTAL IRON BINDING CAPACITY FERRITIN CBC (INCLUDES DIFF/P LT) HEMOGLOBIN A1c TSH, free T4, total T3 LIPID PANEL COMPREHENSIVE METABO LIC PANEL, W/EGFR PROBNP, N TERMINAL Monitor - Telemetry (Mobile Cardiac) Stress Routine Complete Echo
--- OUTSIDE RECORDS SUMMARY | 2024-11-21 10:15 | XMS_ITS ---
Author Organization [facility] Address [address] [place] [address] Care Team Providers Care Bore Miner Operator Name Role Phone Richelle Wong Primary Care Provider Allergies Allergen (clinical drug ingredient) Drug/Non Drug Allergy documented on EMR Reaction Allergy Type Onset Date Status Penicillin Unknown Drug Allergy Active REASON FOR VISIT 4 week F/U Medications Medication SIG (Take, Route, Frequency, Duration) [...] Female Encounters Encounter Location Date Provider Diagnosis [address] [place] [address] 08/15/2024 Richelle Wong Generalized anxiety disorder F41.1 ; Depression F32.9 ; ADHD (attention deficit hyperactivity disorder) F90.9 and Medication monitoring encounter Z51.81 Assessments Encounter Date Diagnosis (ICD Code) Assessment Notes Treatment Notes Treatment Clinical Notes Section Notes 08/15/2024 Generalized anxiety disorder (ICD-10 - F41.1) Continue PRN Encouraged therapy 08/15/2024 Depression (ICD-10 - F32.9) [place] agreement to continue current regimen as client reports doing well. 08/15/2024 ADHD (attention deficit hyperactivity disorder) (ICD-10 - F90.9) Discussed controlled sub. PDMP checked with no concerns. May fill . Discussed r/b/se in length. 08/15/2024 Medication monitoring encounter (ICD-10 - Z51.81) 08/15/2024 Other Reasons, potential benefits, potential risks, [...] May also contact the 24-hour crisis hotline ([facility]), refer to the closest emergency [...] Name Sig Start Date Stop Date Notes Vyvanse 50 MG 1 capsule in the mor kaitlynn Orally Once a day for 30 days 10/12/2024 Vyvanse 50 MG 1 capsule in the mor kaitlynn Orally Once a day for 30 days 09/14/2024 hydrOXYzine HCl 10 MG 1-2 tablet as need ed for sleep Orally Once a day for 30 days Vyvanse 50 MG 1 capsule in the mor kaitlynn Orally Once a day for 30 days 08/17/2024 Escitalopram Oxalate 10 MG 1 tablet Oral ly Once a day for 30 days Treatment Notes Assessment Notes Generalized anxiety disorder Continue PRN Encouraged therapy Depression [place] agreement to continue current regimen as client reports doing well. ADHD (attention deficit hype ractivity disorder) Discussed controlled sub. PDMP checked with no concerns. May fill . Discussed r/b/se in length. Other Reasons, potential [...] vital signs. Next Appt Details Follow Up: 3 Months, Reason: Psych F/U in-office Progress Notes * TIFFANIE MeiOB: 0 (24 yo F)Acc No.[id number]:08/15/2024 Patient: Blossom VILLANUEVA Provider: Benito Wong, NAZARIO, CREDIT CORRESPONDENCE CLERK, AUDITING CLERK-C :2000 A ge:24 Y S ex:Female Date:08/15/2024 Address:[address] [place] [address] , [address] [facility] Subjective: * Chief Complaints: * 4 week F/U * HPI: D epression Screening: PHQ-9 L [...] in behavioral health treatment .. S creening: [place] Suicide Severity Rating Scale (LF) D o [...] P sychiatric Assessment - Current Symptoms: How is ct doing today? Client is a 24 yo F on the phone today reporting things have been pretty normal. Medications/compliance/SE Reports she has been taking medications well, often forgets hydroxyzine, but states doing well otherwise, denies SE. Depression: 09/25 Anxiety: 10/23 Anger/irritability: Denies Hallucinations/paranoia: Denies Sleep: Awful as normal, but I haven't been taking the hydroxyzine because I forget and then it is too late. Appetite: Good Energy: A little lower but have been eating more carbs. Goals: School- states it has been going well, still on break Drugs/ETOH: Denies. Rare alcohol but none lately really. Therapy: With the school, yes Social: Talking with family and friends Suicidal ideation: Denies Homicidal ideation: Denies Medical changes/concerns: So far nothing new, still being assessed for POTS. . 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 * Medications: T akingDulera 200-5 MCG/ACT Aerosol as directed Inhalation Aspirin 81 MG Tablet Chewable 1 tablet Orally Once a day Progesterone 100 MG Capsule as directed Orally , Notes to Pharmacist: hasn't been taking, but will be back on soon 01/24/24Escitalopram Oxalate 10 MG Tablet 1 tablet Orally Once a day Vyvanse 50 MG Capsule 1 capsule in the morning Orally Once a day hydrOXYzine HCl 10 MG Tablet 1-2 tablet as needed for sleep Orally Once a day Taking Dulera 200-5 MCG/ACT Aerosol as directed Inhalation Taking Aspirin 81 MG Tablet Chewable 1 tablet Orally Once a day Taking Progesterone 100 MG Capsule as directed Orally , Notes to Pharmacist: hasn't been taking, but will be back on soon 01/24/24Taking Escitalopram Oxalate 10 MG Tablet 1 tablet Orally Once a day Taking Vyvanse 50 MG Capsule 1 capsule in the morning Orally Once a day Taking hydrOXYzine HCl 10 MG Tablet 1-2 tablet as needed for sleep Orally Once a day * Allergies: P sadiqicillinno[Allergies Verified] Objective: * Vitals: * Examination: M [...] Once a day, 30 days, 60, Refills 1. Notes: Continue PRN Encouraged therapy 3. A DHD (attention deficit hyperactivity disorder) Refill Vyvanse Capsule, 50 MG, 1 capsule in the morning, Orally, Once a day, 30 days, 30 Capsule, Refills 0; R efill Vyvanse Capsule, 50 MG, 1 capsule in the morning, Orally, Once a day, 30 days, 30 Capsule, Refills 0; R efill Vyvanse Capsule, 50 MG, 1 capsule in the morning, Orally, Once a day, 30 days, 30 Capsule, Refills 0. Notes: Discussed controlled sub. PDMP checked with no concerns. May fill . Discussed r/b/se in length. 4. O thers [...] May also contact the 24-hour crisis hotline ([facility]), refer to the closest emergency [...] appearance, affect, AIMS, or vital signs. * Procedure Codes: * Follow Up: 3 Months (Reason: Psych F/U in-office) * * MAKER HELPER Sign off status: Completed true * Provider: Benito Wong, MSN, CREDIT CORRESPONDENCE CLERK, AUDITING CLERK-C Date: Generated for Lilia bonner/Gentry/Ckitting on: 0 11/21/2024 10:14 AM CDT History [...] . Psychiatric Assessment - Current Symptoms How is ct doing today? Client is a 24 yo F on the phone today reporting things have been pretty normal. Medications/compliance/SE Reports she has been taking medications well, often forgets hydroxyzine, but states doing well otherwise, denies SE. Depression: 09/25 Anxiety: 10/23 Anger/irritability: Denies Hallucinations/paranoia: Denies Sleep: Awful as normal, but I haven't been taking the hydroxyzine because I forget and then it is too late. Appetite: Good Energy: A little lower but have been eating more carbs. Goals: School- states it has been going well, still on break Drugs/ETOH: Denies. Rare alcohol but none lately really. Therapy: With the school, yes Social: Talking with family and friends Suicidal ideation: Denies Homicidal ideation: Denies Medical changes/concerns: So far nothing new, still being assessed for POTS. Screening [place] Suicide Severity Rating Scale (LF) Do you [...] CONCENTRATION No deficits ATTITUDE AND BEHAVIOR Cooperative, Slitter Creaser Slotter Helper tive MEMORY Immediate, Recent, R emote MOOD Euthymic SPEECH QUANTITY Appropriate SPEECH QUALITY Appropriate volume THOUGHT PROCESS Coherent and goal di rected THOUGHT CONTENT Appropriate - WNL SUICIDAL IDEATION Denies suicidal idea tion HOMICIDAL IDEATION Denies homicidal lief ation HALLUCINATIONS Denies hallucination s INSIGHT Good JUDGMENT Good FUND OF KNOWLEDGE Good ABILITY TO PARTICIPATE IN TREATMENT Mode rate WILLINGNESS TO PARTICIPATE IN TREATMENT High
--- OUTSIDE RECORDS SUMMARY | 2024-11-21 10:15 | XMS_ITS | Data Portability ---
Author Organization [facility] Caro Address [address] [place] [place] [address] Care Team Providers Care Business Process Representative Name Role Phone LUCRECIA VANCE Primary Care Provider Assessment Encounter Date Assessment Date Assessment LastModified by Organization Details LastModified Time 05/01/2022 05/01/2022 check labs, consider metformin after reviewing labs, discussed traditional pop f/u by phone in 3 months or sooner if needed. discussed pap next year? 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 Lab culture, urine 2021 022 [facility] (Lab), [address], [place], [address], 06:15:52 test, urine 2021 022 [email or web address] 1 [address], [place], [address], 12:21:57 urinalysis , dipstick 2021 022 [email or web address] 1 [address], [address], [place], [address], 2 12:23:25 Referral None recorded. Procedures None recorded. Surgeries None recorded. Imaging US, pelvis 2022 023 [email or web address] [address], [address], [place], [address], 3 20:28:26 US, pelvis, complete 2022 023 [email or web address] 1 [facility], [address], [place], [address], 3 19:42:48 US, pelvis 2020 021 [email or web address] [facility], [address], [address], [place], [address], 17:12:47 US, abdomen 2020 021 [email or web address] Not available 14:45:07 Medication Orders Katerine 0.35 mg tablet 2021 022 Y[facility], [address] [facility], [place], [address], 2 12:50:31 Slynd 4 mg (28) tablet 2020 021 [email or web address] [facility], [address] [place], [address], 3 12:26:18 Patient TargetsNo targets recorded. Patient InstructionsNo instructions recorded. Reason for Referral None Reported. Results Created Date Observation Date Name Description Value Unit Range Abnormal Flag Note LastModifiedBy Organization Detail LastModifiedTime 05/01/2005/01/2022 CULTU RE: URINE result report SEE RESULT S BELOW Test: Cultu re: Urine Speci men Sourc e: Urine Voide d Speci men Type: Urine Speci men Date: 2021 1:39 PM Resul t Date: 2021 5:12 AM Resul t Statu s: Final resul t Abnor mal: No Resul larisa Lab: [facility] [address] [facility] [address] Tel: CULTU RE ----- ----- ----- --- No growt h in 1 day (dete ction level of 10,00 0 colon ies / ml.) Not Available [facility] [address] [place], [address], 05/03/2022 06:15:52 05/01/20 22 05/01/2022 urina lysis , dipst ick Leukocytes +2 Not Available [facility] [address], [place], [address], 05/01/2022 12:22:18 05/01/20 22 05/01/2022 urina lysis , dipst ick Nitrite normal Not Available [facility] [address], [place], [address], 05/01/2022 12:22:18 05/01/20 22 05/01/2022 urina lysis , dipst ick Urobilinogen normal Not Available [facility] jayjay [address], [place], [address], 05/01/2022 12:22:18 05/01/20 22 05/01/2022 urina lysis , dipst ick Protein trace Not Available [facility] [address], [place], [address], 05/01/2022 12:22:18 05/01/20 22 05/01/2022 urina lysis , dipst ick pH 5 Not Available [facility] [address], [place], [address], 05/01/2022 12:22:18 05/01/20 22 05/01/2022 urina lysis , dipst ick Blood +++ Not Available [facility] [address], [place], [address], 05/01/2022 12:22:18 05/01/20 22 05/01/2022 urina lysis , dipst ick Specific [place] 1.000 Not Available [facility] adrian [address], [place], [address], 05/01/2022 12:22:18 05/01/20 22 05/01/2022 urina lysis , dipst ick Ketone normal Not Available [facility] [address], [place], [address], 05/01/2022 12:22:18 05/01/20 22 05/01/2022 urina lysis , dipst ick Bilirubin normal Not Available [facility] bentley [address], [place], [address], 05/01/2022 12:22:18 05/01/20 22 05/01/2022 urina lysis , dipst ick Glucose normal Not Available [facility] [address], [place], [address], 05/01/2022 12:22:18 05/01/20 22 05/01/2022 urina lysis , dipst ick Appearance normal Not Available [facility] [address], [place], [address], 05/01/2022 12:22:18 05/01/20 22 05/01/2022 urina lysis , dipst ick Color normal Not Available [facility] [address], [place], [address], 05/01/2022 12:22:18 05/01/20 22 05/01/2022 pregn tylor test, urine HCG negati ve Not Available [facility] [address], [place], [address], 05/01/2022 12:21:01 09/02/19 23 09/02/2022 DHEA SULFA TE DHEA-sulfate 183 ug/dL Femal e Range s Age(y ) Range (ug/d L) 10-15 34-28 0 15-20 65-36 8 20-25 148-4 07 25-35 99-34 0 35-45 61-33 7 45-55 35-25 6 55-65 19-20 5 65-75 9-246 > 75 12-15 4 Not Available [facility] (Lab) [address] [facility], [place], [address], 09/06/2022 16:18:00 09/02/19 23 09/02/2022 ESTRA DIOL estradiol 118.0 pg/mL This assay was perfo rmed using [employer] ratio n reage nts and test kits. Value s obtai mark with other assay metho ds or kits canno t be used inter [facility] . Femal e Estra diol Range s: Folli cular phase 12.4- 233 pg/mL Ovula tion phase 41.0- 398 pg/mL Lutea l phase 22.3- 341 pg/mL Postm enopa usal< 5-138 pg/mL Healt hy Pregn ant Women 1st Trime ster1 54-32 43 pg/mL 2nd Trime ster1 561-2 1280 pg/mL 3rd Trime ster8 525-> 31377 pg/mL Not Available [facility] (Lab) [address] [facility] [address] [facility], [place], [address], 09/06/2022 16:18:00 09/02/19 23 09/02/2022 PROGE STERO NE progesterone 7.60 NG/mL This assay was perfo rmed using [employer] reage nts and test kits. Value s obtai mark with other assay metho ds or kits canno t be used inter [facility] . Femal e Proge stero ne Range s: Folli cular phase 0.06- 0.89 ng/mL Ovula tion phase 0.12- 12.00 ng/mL Lutea l phase 1.83- 23.90 ng/mL Postm enopa usal< 0.05- 0.13 ng/mL Healt hy Pregn ant Women 1st Trime ster1 1.0-4 4.30 2nd Trime ster2 5.40- 83.30 3rd Trime ster5 8.70- 214.0 0 Not Available [facility] (Lab) [address] [place], [address], 09/06/2022 16:18:01 09/02/19 23 09/02/2022 PROLA CTIN prolactin, total 12.80 NG/mL 4.79-2 3.30 This assay was perfo rmed using [employer] reage nts and test kits. Value s obtai mark with other assay metho ds or kits canno t be used inter [facility] . Not Available [facility] (Lab) [address] [place], [address], 09/06/2022 16:18:01 09/02/19 23 09/02/2022 LH (LUTE NIZIN G HORMO NE) LH 9.3 mIU/m L This assay was perfo rmed using [employer] reage nts and test kits. Value s obtai mark with other assay metho ds or kits canno t be used inter [facility] . Femal es Mid-F ollic ular: 2.4-1 2.6 mIU/m L Mid-C ycle: 14.0- 95.6 mIU/m L Mid-L uteal : 1.0-1 1.4 mIU/m L Postm enopa use: 7.7-5 8.5 mIU/m L Not Available [facility] (Lab) [address] [place], [address], 09/06/2022 16:18:01 09/02/19 23 09/02/2022 FSH FSH 3.6 mIU/m L This assay was perfo rmed using [employer] reage nts and test kits. Value s obtai mark with other assay metho ds or kits canno t be used inter [facility] . Femal es Folli cular : 3.5-1 2.5 mIU/m L Ovula tion: 4.7-2 1.5 mIU/m L Lutea l: 1.7-7 .7 mIU/m L Postm enopa use: 25.8- 134.8 mIU/m L Not Available [facility] (Lab) [address] [facility] [facility], [place], [address], 09/06/2022 16:18:02 09/02/19 23 09/02/2022 TSH, REFLE X FREE T4 TSH 1.08 uIU/m L 0.30-5 .33 Not Available [facility] (Lab) [address], [place], [address], 09/06/2022 16:18:02 09/02/19 23 09/02/2022 HEMOG LOBIN A1C hemoglobin A1C 5.6 % 0-5.6 The Ameri can Diabe rogelio Assoc iatio n recom mends that a prima ry goal of thera py letty d be a HBA1C of < 7% and that physi cians shoul d reeva luate the treat ment regim en in patie nts with HBA1C value s consi stent ly > 8%. <5.7% Shirley l 5.7 - 6.4% Incre ased risk for diabe rogelio >=6.5 % Diagn ostic of diabe rogelio <7.0% Goal of thera py >8.0% Actio n sugge sted Not Available [facility] (Lab) [address] , [place], [address], 09/06/2022 16:18:03 09/02/19 23 09/02/2022 HUMAN SEX HORMO NE NEISHA NG GLOBU DYLAN sex hormone binding globulin 24.0 nmole s/L 18.2-1 35.5 Not Available [facility] (Lab) [address], [place], [address], 09/06/2022 16:18:03 09/02/19 23 09/02/2022 TESTO STERO NE, FREE( DIALY SIS) AND TOTAL (LC/M S/MS) testosterone , total 15 NG/dL 2-45 For addit ional gregr ireneklarissa mazariegos e refer to http: //konrad pérezque stdia gnost ics.c om/fa q/Tot Freda Gonzalez [facility] (This link is being provi ded for infor patricio nal/ educa johana l purpo ses only. ) This test was devel oped and its zoltan tical perfo rmanc e daron cteri stics have been deter mined by [employer]. It has not been clear ed or appro jessie by the FDA. This assay has been valid ated pursu ant to the CLIA regul ation s and is used for clini joanna purpo ses. Not Available [facility] (Lab) [address] [place], [address], 09/06/2022 16:18:03 09/02/19 23 09/02/2022 TESTO STERO NE, FREE( DIALY SIS) AND TOTAL (LC/M S/MS) testosterone , free 2.2 pg/mL 0.1-6. 4 This test was devel oped and its zoltan tical perfo rmanc e daron cteri stics have been deter mined by [employer]. It has not been clear ed or appro jessie by the FDA. This assay has been valid ated pursu ant to the CLIA regul ation s and is used for clini joanna purpo ses. Perfo rming Organ izati on Maria Elena curry n: Site ID: [id number] Name: [employer]-Dada [facility] Addre ss: [id number] [address] [facility] [place] [address] Direc tor: John strong M.D. Not Available [facility] (Lab) [address] [place], [address], 09/06/2022 16:18:03 09/02/19 23 09/02/2022 17-OH PROGE STERO NE 17-hydroxypr ogesterone, lc/MS/MS 151 NG/dL Adult Femal e Refer ence Range s for 17-Hy droxy proge stero ne: Pre-M enopa usal Mid Folli cular : 23-10 2 ng/dL Pre-M enopa usal Surge : 67-34 9 ng/dL Pre-M enopa usal Mid Lutea l: 139-4 31 ng/dL Postm enopa usal Phase : < or = 45 ng/dL Pregn tylor: First Trime ster: 78-45 7 ng/dL Secon d Trime ster: 90-35 7 ng/dL Third Trime ster: 144-5 78 ng/dL This test was devel oped and its zoltan tical perfo rmanc e daron cteri stics have been deter mined by [facility] [employer] [facility] . It has not been clear ed or appro jessie by FDA. This assay has been valid ated pursu ant to the CLIA regul ation s and is used for clini joanna purpo ses. Perfo rming Organ izati on Infor matio n: Site ID: [id number] Name: [facility] Kely best s/Dada guevara [facility] [place] , Addre ss: [id number] [facility] [place] [address] Direc tor: Nikki gtz MD,Ph D,JENNY Not Available [facility] (Lab) [address], [place], [address], 09/06/2022 16:18:04 06/04/20 21 06/04/2021 US, deidre s No observ ation record ed. tonia [facility] [address], [place], [address], 06/05/2021 14:04:49 06/04/20 21 06/04/2021 US, deidre s No observ ation record ed. YAO [address] [facility], [place], [address], 06/05/2021 17:40:01 09/07/19 23 09/07/2022 US, deidre s No observ ation record ed. [email or web address] [facility] [address], [place], [address], 09/07/2022 17:10:08 09/07/19 23 09/07/2022 US, deidre s No observ ation record ed. [email or web address] [address], [place], [address], 09/10/2022 13:16:27 Result Notes None recorded. 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 14:18:44 Bleeding 662494399 Completed 201811/06/2020 Abnormal vaginal bleeding ;Recorde d Elsewher e: No [facility] our[facility]: EHR Waste Minimization Technician dada: N Stas ce ID: [id number] Tim lable Time: 02:30:00 PM Aparna rodriguez [facility] 14:17:[address] Concept Completed 201811/06/2020 Encntr for routine child health exam w/o abnormal findings ;Recorde d Elsewher e: No [facility] ource: EHR Waste Minimization Technician dada: N Stas ce ID: [id number] Tim lable Time: 02:30:00 PM Aparna rodriguez [facility] 14:17:55 Pain in female genitali a Completed 201811/06/2020 Dysmenor christie;Rec orded Elsewher e: No Locat ion: [facility] S ource: EHR Waste Minimization Technician dada: N Stas ce ID: [id number] Tim lable Time: 09:45:00 AM Aparna rodriguez [facility] 14:17:53 Uses combined oral contrace ption [id number] Completed 201711/06/2020 Encounte r for surveill ance of contrace ptive pills;Pr actice ID: [id number] Aparna rodriguez [facility] 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 14:17:57 Problem Notes None recorded. Procedures Surgical History None recorded. Imaging Results Imaging Date Name Status LastModified by Organiz ation Details LastModified Time 06/04/2021 US, pelvis completed layran [facility] [address], [place], [address], 06/05/2021 14:04:49 06/04/2021 US, pelvis completed YAO Mohini [address], [place], [address], 06/05/2021 17:40:01 09/07/2022 US, pelvis completed [email or web address] [facility] [address], [place], [address], 09/07/2022 17:10:08 09/07/2022 US, pelvis completed [email or web address] [address], [place], [address], 09/10/2022 13:16:27 Procedure Notes None recorded. Medical Equipment None Reported. Allergies Allergen ID Allergen Name Allergen Category Reaction Reaction Severity Criticality Documentation Date Start Date Code Code System Note Provider Name and Address Organization Details Recorded Time 1423 Product containin g penicilli n (product) medicatio n Not available Not available Not available 03/08/2020 15359 [id number] SNOMED Maggie rodriguez, [facility] 0 11:04:35 Medications Name Sig Start Date Stop Date Status Note LastModified by Organization Details LastModified Time clindamyc in HCl 300 mg capsule 03/24 /2021 completed Not Available Not Available Not Available azithromy nehemias 250 mg tablet TAKE 2 TABLETS BY MOUTH ON DAY 1, AND THEN TAKE 1 TABLET BY MOUTH ONCE A DAY ON DAY 2 THROUGH DAY 5 09/02 completed Not Available Not Available Not Available ibuprofen 800 mg tablet 11/06 completed Not Available Not Available Not Available Lidocaine Viscous 2 % mucosal solution 11/06 completed Not Available Not Available Not Available Loestrin Fe 09/04 (28-Day) 1 mg-20 mcg (21)/75 mg (7) tablet take 1 tablet by oral route every day 08/11 completed Prescrib ed Elsewher e: No Locat ion: [facility] odalistair By: natividad jo DateTime : 02/12/20 09:45:00 AM Not Available Not Available Not Available ondansetr on HCl 4 mg tablet TAKE 1 TABLET BY MOUTH THREE TIMES A DAY NEEDED FOR NAUSEA active Not Available Not Available No t Available prednison e 5 mg tablet TAKE 4 TABLETS BY MOUTH TWICE DAILY active Not Available Not Available No t Available clindamyc in HCl 150 mg capsule TAKE 3 CAPSULES BY MOUTH 3 TIMES A DAY 05/01 completed Not Available Not Available Not Available Advair Diskus 100 mcg-50 mcg/dose powder for inhalatio n INHALE 1 DOSE BY MOUTH EVERY 12 HOURS active Not Available Not Available No t Available triamcino lone acetonide 0.1 % topical cream APPLY CREAM EXTERNAL LY TO AFFECTED AREA TWICE DAILY FOR NO MORE THAN 14 DAYS IN A ROW 05/28 completed Not Available Not Available Not Available prednison e 50 mg tablet TAKE 1 TABLET BY MOUTH ONCE DAILY 05/01 completed Not Available Not Available Not Available sertralin e 25 mg tablet TAKE 1 TABLET BY MOUTH ONCE DAILY FOR 7 DAYS 05/01 completed Not Available Not Available Not Available albuterol sulfate HFA 90 mcg/actua tion aerosol inhaler INHALE 2 PUFFS BY MOUTH EVERY 4 HOURS NEEDED FOR SHORTNES S OF BREATH FOR WHEEZING active Not Available Not Available No t Available norethind eric (contrace ptive) 0.35 mg tablet TAKE 1 TABLET BY MOUTH ONCE DAILY active Not Available Not Available No t Available sertralin e 50 mg tablet TAKE 1 TABLET BY MOUTH ONCE DAILY FOR 30 DAYS START 7 DAYS AFTER THE 25 MG DOSE 05/01 completed Not Available Not Available Not Available doxycycli ne hyclate 100 mg tablet TAKE 1 TABLET BY MOUTH TWICE A DAY 09/02 completed Not Available Not Available Not Available Loestrin Fe 1.5/30 (28-Day) 1.5 mg-30 mcg (21)/75 mg (7) tablet take 1 tablet by oral route every day 02/09 completed Prescrib kranthi Santoro e: No Locat ion: [facility] M odify By: natividad jo DateTime : 08/11/20 08:30:00 AM Not Available Not Available Not Available escitalop kilo 10 mg tablet TAKE 1 TABLET BY MOUTH ONCE DAILY active Not Available Not Available No t Available bupropion HCl XL 300 mg 24 hr tablet, extended release TAKE 1 TABLET BY MOUTH ONCE DAILY active Not Available Not Available No t Available bupropion HCl XL 150 mg 24 hr tablet, extended release TAKE 1 TABLET BY MOUTH ONCE DAILY IN THE MORNING FOR 30 DAYS 05/01 completed Not Available Not Available Not Available Zyrtec active Not Available Not Availa ble Not Available levonorge strel 1.5 mg tablet USE DIRECTED active Not Available Not Available No t Available bupropion HCl XL 450 mg 24 hr tablet, extended release TAKE 1 BY MOUTH ONCE DAILY IN THE MORNING active Not Available Not Available No t Available 1 mg-20 mcg (24)/75 mg (4) tablet TAKE ONE TABLET BY MOUTH EVERY DAY 03/23 completed Not Available Not Available Not Available 03/23 completed Not Available Not Available Not Available Slynd 4 mg (28) tablet TAKE 1 TABLET BY MOUTH ONCE DAILY 09/02 completed Not Available Not Available Not Available ID NOW COVID-19 Test Kit TEST DIRECTED active Not Available Not Available No t Available Paxlovid 300 mg (150 mg x 2)-100 mg tablets in a dose pack TAKE 2 NIRMATRE LVIR TABLETS AND 1 RITONAVI R TABLET BY MOUTH TWICE DAILY X5 DAYS active Not Available Not Available No t Available Vitals Date Recorded Body height Body mass index (BMI) Body mass index (BMI) Percentile per age and sex Body weight Systolic blood pressure Diastolic blood pressure Provider Name and Address Organization Details Last Updated DateTime 1 170.18 cm 34.1 kg/m2 96 % 78969.1 4 g 131 mm[Hg] 70 mm[Hg] Jasmine Gutierrezan [facility] 1 09:50:49 Date Recorded Body height Body mass index (BMI) Body weight Systolic blood pressure Diastolic blood pressure Provider Name and Address Organization Details Last Updated DateTime 05/01/2022 170.18 cm 36 kg/m2 032403.2 5 g 119 mm[Hg] 84 mm[Hg] Aparna Ericksontz [facility] 2 12:14:54 Date Recorded Body height Body mass index (BMI) Body weight Systolic blood pressure Diastolic blood pressure Provider Name and Address Organization Details Last Updated DateTime 09/02/2022 170.18 cm 35.6 kg/m2 294203.4 7 g 129 mm[Hg] 85 mm[Hg] Neyda Lluvia [facility] 3 12:25:54 Social History Question Answer Notes LastModified by Organizat ion Details LastModified Time Tobacco Smoking Status Never Smoker [facility] 09/02/2022 12:11:03 Do You Have An Advance Directive? No [email or web address] Information not available 11/06/2020 What Is Your Level Of Alcohol Consumption? None [email or web address] Information not available 03/12/2020 If You Are , What Was Your Level Of Alcohol Consumption Prior To ? Occasional [email or web address] Information not available 09/02/2022 Are You Blind Or Do You Have Difficulty Seeing? No [email or web address] Information not available 11/06/2020 What Is Your Level Of Caffeine Consumption? Occasional [email or web address] Information not available 11/06/2020 How Much Tobacco Do You Chew? None [email or web address] Information not available 11/06/2020 In The 14 Days Before Symptom Onset, Have You Had Close Contact With A Laboratory-confir med COVID-19 While That Case Was Ill? No [email or web address] Information not available 11/06/2020 In The 14 Days Before Symptom Onset, Have You Had Close Contact With A Person Who Is Under Investigation For COVID-19 While That Person Was Ill? No [email or web address] Information not available 11/06/2020 Have You Been To An Area Known To Be High Risk For COVID-19? No [email or web address] Information not available 11/06/2020 Are You Deaf Or Do You Have Serious Difficulty Hearing? No [email or web address] Information not available 11/06/2020 What Type Of Diet Are You Following? REGULAR [email or web address] Information not available 11/06/2020 What Is The Highest Grade Or Level Of School You Have Completed Or The Highest Degree You Have Received? 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 No [email or web address] Information not available 11/06/2020 Do You Use Protection During Sex? No [email or web address] Information not available 11/06/2020 Do You Use Your Seat Belt Or Car Seat Routinely? Yes [email or web address] Information not available 11/06/2020 Do You Have Smoke And Carbon Monoxide Detectors In Your Home? Yes [email or web address] Information not available 11/06/2020 How Much Tobacco Do You Smoke? No [email or web address] Information not available 11/06/2020 Do You Feel Stressed (tense, Restless, Nervous, Or Anxious, Or Unable To Sleep At Night)? [id number] [email or web address] Information not available 11/06/2020 Do You Use Any Illicit Or Recreational Drugs? No [email or web address] Information not available 11/06/2020 Do You Use Sunscreen Routinely? Yes [email or web address] Information not available 11/06/2020 Has Tobacco Cessation Counseling Been Provided? No [email or web address] Information not available 09/02/2022 Have You Used IV Drugs? No [email or web address] Information not available 11/06/2020 Do You Or Have You Ever Used Any Other Forms Of Tobacco Or Nicotine? No [email or web address] Information not available 09/02/2022 Sex: Unknown Functional Status Question Answer Note LastModified by Organizat ion Details LastModified Time Do you have difficulty walking or climbing stairs? No [email or web address] Information not available 09/02/2022 Are you able to walk? YESWOREST [email or web address] Information not available 11/06/2020 Are you able to care for yourself? Yes [email or web address] Information not available 09/02/2022 Do you have difficulty dressing or bathing? No [email or web address] Information not available 09/02/2022 What is your exercise level? Moderate [email or web address] Information not available 11/06/2020 Mental Status None recorded. Family History Relationship Description Onset Age of this Age Resolved Age Notes LastModified by Organization Details LastModified Time Mother Hypercholest erolemia [email or web address] Not available 2019 11:04:11 Mother Hypertensive disorder [email or web address] Not available 2019 11:04:23 Sister Cyst of ovary [email or web address] Not available 2022 12:11:02 Sister Factor V Leiden mutation [email or web address] Not available 2022 12:11:02 Notes:Mother: Hypertension, High cholesterol Medical History Condition Response Allergies (Food, seasonal, environmental ) N Other N Drug/Latex Allergies/Reactions N Blood Transfusion N Breast Cancer N Dermatologic Disorders N Lung Disease N Defects or Inherited Disease Y Breast Problem N Gestational Diabetes N Hematologic disorders N Anesthesia Complications N History of STI N Deep Vein Thrombosis N Polycystic ovary syndrome Y Anxiety Disorder N Autoimmune disease N Arthritis N Polyps N Infertility N Acid Reflux (GERD) N History of abnormal pap N Cancer N Varicosities N Stroke N Neurologic/Epilepsy N Endometriosis N High Cholesterol N Fibromyalgia N Headaches N Kidney Disease N Heart Problems N Thyroid Problems N Kidney or Bladder Problems N GI Problems N Eating Disorder N Anemia N Art (IVF or FET) N Psychiatric Illness N Ovarian Cancer N Diabetes N Pulmonary (TB, Asthma) N Hepatitis/Liver Disease N No Past Medical History N Eczema N Urinary Tract Infection N Abuse/Domestic Violence N Asthma Y Trauma/Violence N Depression/ depression N Heart Disease N Pre-Eclampsia N Hypertension N Osteoporosis N Thrombophilias N Gynecological History Statement/Question Response Abnormal Pap N Date of LMP 08/15/2022 STIs/STDs N Was last menstrual period normal N Age of first menstrual cycle 14 Date of Last Pap Smear Sexual Problems? N Current Control Method BCPs Desired Control Method LMP Approximate Obstetrics History GPAL:G 0 P 0 0 0 0 Type Value Living 0 Total 0 Past Encounters Encounter ID Performer Location Encounter Start Date Encounter Closed Date Diagnosis/Indication Diagnosis SNOMED-CT Code Diagnosis ICD10 Code Diagnosis Note [id number] Diana Trejo [address] [place] [address] 03/12/2020 09:33:08 03/12/2020 10:51:41 Abnormal uterine bleeding [id number] 9100 N93.9 This has been a problem for a couple years. Will repeat labs and schedule u/s that she was unable to complete. Then she will return for follow up to discuss results and plan. [place] verbalized understand [place]. [id number] Scarlet Tna [facility] [address],[place] [address] 03/13/2020 11:32:45 03/13/2020 13:06:16 Abnormal uterine bleeding [id number] 9100 N93.9 [id number] Louis Venegas MD [facility] [address],[place] [address] 03/23/2020 10:40:49 03/23/2020 12:05:58 Abnormal uterine bleeding [id number] 9100 N93.9 This patient is a 19-year-ol d female with irregularl y irregular bleeding. Since this is longstandi ng. It may have been and since her periods began. It is difficult to get history from her. She appears to have irregularl y irregular bleeding by history. It is longstandi ng. We talked about polycystic ovarian syndrome. I spent 25 minutes face-to-fa ce with the patient more than 50% was counseling . We agreed to laboratory evaluation and treatment with OCPs. She was prescribed OCPs in given detailed instructio ns and precaution s. [id number] Suzanne Arvizu CNM [facility] [address],[place] [address] 11/06/2020 13:45:21 11/06/2020 15:32:11 Contraception care management [id number] Z30.9 [id number] Suzanne Arvizu CNM [facility] [address],[place] [address] 05/28/2021 09:40:18 05/28/2021 11:49:55 Pain in pelvis 07395796 R10.2 check us, transabdom inal only, will f/u pending results Dysmenorrhea [id number] N 94.6 continue slynd, will [place] [id number] Kristinadarnell Davisson [facility] [address],[place] [address] 06/04/2021 15:01:09 06/04/2021 15:32:05 Pain in pelvis [id number] R10.[id number] [facility] [address],[place] [address] 05/01/2022 11:50:23 05/01/2022 13:29:04 Irregular periods [id number] N92.[id number] [facility] [address],[place] [address] 09/02/2022 12:10:54 09/02/2022 13:54:32 Polycystic ovary syndrome [id number] E28.2 [id number] Scarlet Tan [facility] [address],[place] [address] 09/07/2022 14:24:05 09/07/2022 15:23:32 Pain in pelvis 39286989 R10.2 Health Concerns Section Related Observation LastModified by Organization Detai ls LastModified Time None Recorded Concern Status LastModified by Organization Details LastModified Time None Recorded Advance Directives Directive N: Payers Encounter Date Sequence Insurance Name Policy Number Policy Stroud Covered Member ID Stroud Member ID Guarantor Name 05/28/2021 1 [facility] ON OR AFTER 02/13/21 (MEDICAID REPLACEMENT - HMO) Blossom Wong [id number] Blossom Wong 06/04/2021 1 [facility] - [facility] ON OR AFTER 21 (MEDICAID REPLACEMENT - HMO) Blossom Wong [id number] Blossom Wong 05/01/2022 1 [facility] - [facility] ON OR AFTER 21 (MEDICAID REPLACEMENT - HMO) Blossom Wong [id number] Blossom Wong 09/02/2022 1 [facility] ON OR AFTER 02/13/21 (MEDICAID REPLACEMENT - HMO) Blossom Wong [id number] Blossom Wong 09/07/2022 1 [facility] - DOS ON OR AFTER 21 (MEDICAID REPLACEMENT - HMO) Blossom Wong [id number] Blossom Wong Notes Date Note Type Note Provider Name and Address Organization Details Recorded Time 05/28/2021 text/html pt spoke to wallpaper embosser helper about Slynd, rec non hormonal but pt has very painful periods and is happy on slynd, reviewed risk of blood clot but pt wants to stay on it. getting a new wallpaper embosser helper. feels like he isn't listening to her. also c/o pain monthly on right side last 2 months was worse this month hx pcos and cysts, not sexually active Suzanne Arvizu CNM [address], [place], [address], [facility] 05/28/2021 11:48:25 05/01/2022 text/html pcos, hx ovarian cysts, periods have been very irregular and spotty on the slynd, 30 lb weight gain in a month, seeing pcp, not sexually active, factor V Suzanne Arvizu CNM [address], [place], [address], [facility] 05/01/2022 12:50:58 OBGyn Episode No OBEpisode recorded.
--- OUTSIDE RECORDS SUMMARY | 2024-11-21 10:15 | XMS_ITS | Clinical Summary ---
[facility] Address [address] [place] [address] Care Team Providers Care Hose Tender Name Role Phone Louis Venegas MD Primary Care Provider [phone] Allergies Active Allergy Reactions Criticality Noted Date Comments Penicillins Hives,Itching,Rash,S hortness of Breath/Wheezing,Swelling High 06/25/2002 Medications Slynd 4 mg (28) Tablet TAKE 1 TABLET BY MOUTH ONCE DAILY 11/07/2020 Active Active Problems Problem Noted Date Diagnosed Date Secondary hypercoagulable state 06/25/2020 Family History Medical History Relation Name Comments Diabetes Brother Relation Name Status Comments Brother Father Alive Mother Alive Sister Alive Social History Tobacco Use Types Packs/Day Years Used Date Smoking Tobacco: Never Alcohol Use Standard Drinks/Week Comments Never 0 (1 standard drink = 0.6 oz pur e alcohol) Comments Unknown Sex and Gender Information Value Date Recorded Sex Assigned at Not on file 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 Gender Identity Not on file Sexual Orientation Not on file 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 Not on file Not on file Last Filed Vital Signs Vital Sign Reading Time Taken Comments Blood Pressure 148/88 01/06/2021 11:09 AM CDT 155/90wrist cuff first bp 148/88 manual bp Pulse 91 01/06/2021 11:09 AM CDT Temperature 36.7 C (98 F) 01/06/2021 11:09 AM CDT Respiratory Rate - - Oxygen Saturation 97% 01/06/2021 11: 09 AM CDT Inhaled Oxygen Concentration - - Weight 99.7 kg (219 lb 11.2 oz) 01/06/2021 11:09 AM CDT Height 171.5 cm (5' 7.5 ) 01/06/2021 11 :09 AM CDT Body Mass Index 33.9 01/06/2021 11:09 AM CDT Plan of Treatment Health Maintenance Due Date Last Done Comments CHLAMYDIA SCREENING (ANNUAL) 11-24 YEARS 2011 HPV VACCINES (1 - 3-dose series) 2015 DTAP/TDAP/TD VACCINES (1 - Tdap) 2019 HEPATITIS B VACCINES (1 of 3 - 19+ 3-dose series) 2019 CERVICAL CANCER SCREENING 2021 HPV/Cotest (21-29) 2021 PAP SMEAR 2021 PAP SMEAR 2021 INFLUENZA VACCINE (#1) 2024 PNEUMOCOCCAL VACCINE 0-49 YEARS Aged Out No longer eligible based on patient's age to complete this topic Care Teams Hose Tender Relationship Specialty Start Date End Date Louis Venegas MD [address] [place] [address] PCP - General Obstetrics and Gynecology 06/25/20
--- OUTSIDE RECORDS SUMMARY | 2024-11-21 10:15 | XMS_ITS | Clinical Summary ---
Author Organization [facility] [employer] Address [address] [facility] [place] [address] Care Team Providers Care Forklift Supervisor Name Role Phone Avery Richmond MD Primary Care Provider [phone] Source Comments [facility] [employer],non-owned Affiliates and Associated Physician Practices is amultiple site organization consisting of ambulatory clinics and hospital sitesin [place], [place], [place] and [place]. This disclosure is being madepursuant to the Care Everywhere program and may not contain all information available regarding this patient. Last updated 18.[facility] [employer] Allergies Active Allergy Reactions Criticality Noted Date Comments Penicillins Rash Low 01/08/2012 Medications * Be aware that medications may not be up to date on this document. Alwaysverify current medications with the patient. Medication Sig Dispensed Refills Start Date End Date Status Montelukast Sodium (SINGULAIR PO) Take by mouth once daily. Active albuterol HFA (PROVENTIL;VENTOLIN;P ROAIR) 108 (90 BASE) MCG/ACT inhaler Inhale 2 Puffs by mouth every 4 hours as needed. Active fluticasone hfa 110 (FLOVENT HFA 110) 110 MCG/ACT inhaler Inhale 2 Puffs by mouth 2 times daily. 3 Inhaler 3 01/08/2012 Active ibuprofen (MOTRIN) 200 MG tablet Take 2 Tabs by mouth every 6 hours as needed for Pain. 40 Tab 0 01/08/2012 Active Active Problems Problem Noted Date Diagnosed Date Injury of right elbow 12/05/2013 Social History Tobacco Use Types Packs/Day Years Used Date Smoking Tobacco: Never Assessed Sex and Gender Information Value Date Recorded Sex Assigned at Not on file Gender Identity Not on file Sexual Orientation Not on file Last Filed Vital Signs Vital Sign Reading Time Taken Comments Blood Pressure 138/72 01/08/2012 1:48 PM CDT Pulse 124 01/08/2012 1:48 PM CDT Temperature 36.8 C (98.2 F) 01/08/2012 1:48 PM CDT Respiratory Rate 28 01/08/2012 1:48 PM CDT Oxygen Saturation - - Inhaled Oxygen Concentration - - Weight 61.3 kg (135 lb 2.3 oz) 01/08/2012 1:48 P M CDT Height - - Body Mass Index - - Plan of Treatment Health Maintenance Due Date Last Done Comments PAP SMEAR 2000 HIV SCREENING 2015 HPV VACCINE (1 - 3-dose series) 2015 CHLAMYDIA/GONORRHEA SCREENING 2016 HEPATITIS C SCREENING 08/02/2018 DTAP/TDAP/TD VACCINES (1 - Tdap) 2019 HEPATITIS B VACCINE (1 of 3 - 19+ 3-dose series) 2019 COVID-19 VACCINE (1 - 2023-2 5 season) 2024 DEPRESSION SCREENING 08/16/2024 INFLUENZA VACCINE (Season Ended) 2025 ZOSTER VACCINE (1 of 2) 2050 HIB VACCINE Aged Out No longer eligi ble based on patient's age to complete this topic MENINGOCOCCAL (Group B) VACC INE SHARED DECISION-MAKING Aged Out No longer eligibl e based on patient's age to complete this topic MENINGOCOCCAL GROUPS A/C/Y/W VACCINE Aged Out No longer eligible b ased on patient's age to complete this topic PNEUMOCOCCAL VACCINE Aged Out No long er eligible based on patient's age to complete this topic Care Teams Forklift Supervisor Relationship Specialty Start Date End Date Avery Richmond MD [address] [facility] [address] [place] [address] [facility] - General 01/08/12
[2024-11-21 16:04] LABS: Alanine Aminotransferase 19 U/L (6-35); Albumin Level 4.8 g/dL (3.5-5.1); Alkaline Phosphatase 47 U/L (38-126); Anion Gap 10 mmol/L (4-12); Aspartate Amino Transferase 41 U/L (14-36); Bilirubin,Total 0.6 mg/dL (0.2-1.3); Blood Urea Nitrogen 11 mg/dL (7-17); Calcium 9.3 mg/dL (8.4-10.2); Carbon Dioxide 26 mmol/L (22-30); Chloride 102 mmol/L (98-107); Cholesterol 173 mg/dL (0-200); Estimated Glomerular Filt Rate > 60; Glucose 79 mg/dL (65-110); HDL Direct 51 mg/dL; Potassium 4.4 mmol/L (3.4-5.0); Sodium 138 mmol/L (137-145); Triglycerides 120 mg/dL (<150)
[2024-11-21 16:11] LABS: Vitamin D 25 Hydroxy 13.7 ng/mL
[2024-11-21 16:24] LABS: Thyroid Stimulating Hormone Reflex 0.818 uIU/mL (0.465-4.68)
[2024-11-21 16:56] LABS: LDL Cholesterol Direct 90 mg/dL
[2024-11-21 17:13] LABS: Basophils Absolute Auto 0.1 K/mm3 (0.0-0.1); Basophils Percent Auto 0.8 % (0.2-1.2); Eosinophils Absolute Auto 0.4 K/mm3 (0-0.3); Eosinophils Percent Auto 4.7 % (0-4.4); Hematocrit 43.8 % (37.0-47.0); Hemoglobin 14.1 g/dL (12.0-15.0); Immature Granulocyte Absolute 0.03 K/mm3 (0.00-0.031); Immature Granulocyte Percent A 0.4 % (0-0.5); Lymphocytes Absolute Auto 3.47 K/mm3 (0.9-3.2); Lymphocytes Percent Auto 41.5 % (18.3-44.2); Mean Corpuscular HGB Conc 32.2 g/dl (32-36); Mean Corpuscular Hemoglobin 28.6 pg (26-34); Mean Corpuscular Volume 88.8 fl (80-100); Monocytes Absolute Auto 0.5 K/mm3 (0.1-0.6); Monocytes Percent Auto 6.5 % (2.6-8.5); Neutrophils Absolute Auto 3.9 K/mm3 (1.3-6.7); Neutrophils Percent Auto 46.1 % (45.5-73.1); Platelet Count Result 387 k/mm3 (150-375); Red Blood Count 4.93 M/mm3 (4.2-5.4); Red Cell Distribution Width 12.8 % (11.5-14.5); White Blood Count 8.4 K/mm3 (4.5-10.0)
[2024-11-21 18:26] LABS: Hemoglobin A1C 5.3 % (<5.7)
[2024-11-23 14:44] LABS: NIL 0.05 IU/mL; Quantiferon TB Plus, 1T NEGATIVE (NEGATIVE); TB1-NIL 0.02 IU/mL; TB2-NIL 0.04 IU/mL
== END 2024-11-21 09:24 | disposition home or self-care (01) ==
LOC: ANHGOSHLAB 09:24
PROVIDERS: PCP Family Medicine; Visit Provider Family Medicine
DX: Z00.00 Encounter for general adult medical examination without abnormal findings (principal); E78.5 Hyperlipidemia, unspecified; E55.9 Vitamin D deficiency, unspecified; E53.8 Deficiency of other specified B group vitamins; R73.9 Hyperglycemia, unspecified; Z79.899 Other long term (current) drug therapy; Z11.1 Encounter for screening for respiratory tuberculosis
CPT/HCPCS: 36415; 80053; 80061; 82306; 82607; 83036; 84443; 85025; 86480

== ENCOUNTER 2025-02-22 08:09 | Outpatient (CLI) | payer OTHER, SELFPAY ==
--- OUTSIDE RECORDS SUMMARY | 2025-02-22 08:14 | XMS_ITS | Referral Summary ---
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 Care Teams Die Stamper Relationship Specialty Start Date End Date Patricia Almaraz MD PCP - General Family Practice 07/28/22
--- OUTSIDE RECORDS SUMMARY | 2025-02-22 08:15 | XMS_ITS | Patient Health Record ---
Author Organization [facility] Address [address] [place] [address] Care Team Providers Care Saw Maker Name Role Phone Richelle Wong Primary Care Provider Connie Peck [phone] Allergies Allergen (clinical drug ingredient) Drug/Non Drug Allergy documented on EMR Reaction Allergy Type Onset Date Status Penicillin Unknown Drug Allergy Active Reason For Referral No Information Medications Medication SIG (Take, Route, Frequency, Duration) Notes Start Date End Date Status Vyvanse 50 MG 1 capsule in the morning Orally Once a day; Duration: 30 days 09/14/2024 Active Aspirin 81 MG 1 tablet Orally Once a day; Duration: 30 day(s) Active Progesterone 100 MG as directed Orally hasn't be en taking, but will be back on soon 01/24/24 Active Dulera 200-5 MCG/ACT as directed Inhalation Active Vyvanse 60 MG 1 capsule in the morning Orally Once a day; Duration: 30 days 12/25/2024 Active hydrOXYzine HCl 10 MG 1-2 tablet as need ed for sleep Orally Once a day; Duration: 30 days Active Escitalopram Oxalate 10 MG 1 tablet Orally Once a day; Duration: 30 days Active Social History Tobacco Use: [...] Status Risk Notes Problem Generalized anxiety disorder (07921846) Generalized anxiety disorder (F41.1) Active confirmed Problem Depression (794465743) Depression (F32.9) Active confirmed Problem ADHD (attention deficit hyperactivity disorder) (F90.9) Active confirmed Encounters Encounter Location Date Provider Diagnosis [address] [address] 07/20/2024 Richelle Wong Generalized anxiety disorder F41.1 ; Depression F32.9 ; ADHD (attention deficit hyperactivity disorder) F90.9 and Medication monitoring encounter Z51.81 [facility] [address] [place] [address] 08/15/2024 Richelle Wong Generalized anxiety disorder F41.1 ; Depression F32.9 ; ADHD (attention deficit hyperactivity disorder) F90.9 and Medication monitoring encounter Z51.[address] [address] 12/25/2024 Richelle Wong Generalized anxiety disorder F41.1 ; Depression F32.9 ; ADHD (attention deficit hyperactivity disorder) F90.9 and Medication monitoring encounter Z51.[address] [address] 03/03/2024 Richelle Wong [address] [address] 07/03/2024 Richelle Wong Depression F32.9 and ADHD (attention deficit hyperactivity disorder) F90.[address] [address] 07/14/2024 Connie Peck ADHD (attention deficit hyperactivity disorder) F90.9 and Depression F32.[address] [address] 12/20/2024 Richelle Wong ADHD (attention deficit hyperactivity disorder) F90.9 Assessments Encounter Date Diagnosis (ICD Code) Assessment Notes Treatment Notes Treatment Clinical Notes Section Notes 07/14/2024 ADHD (attention deficit hyperactivity disorder) (ICD-10 - F90.9) 07/20/2024 Generalized anxiety disorder (ICD-10 - F41.1) Continue PRN Encouraged therapy 08/15/2024 Generalized anxiety disorder (ICD-10 - F41.1) Continue PRN Encouraged therapy 12/20/2024 ADHD (attention deficit hyperactivity disorder) (ICD-10 - F90.9) 12/25/2024 Generalized anxiety disorder (ICD-10 - F41.1) Continue PRN Encouraged therapy 07/03/2024 Depression (ICD-10 - F32.9) 07/03/2024 ADHD (attention deficit hyperactivity disorder) (ICD-10 - F90.9) 07/14/2024 Depression (ICD-10 - F32.9) 12/25/2024 Depression (ICD-10 - F32.9) [place] agreement to continue current regimen as client reports doing well. 08/15/2024 Depression (ICD-10 - F32.9) [place] agreement to continue current regimen as client reports doing well. 07/20/2024 Depression (ICD-10 - F32.9) [place] agreement to continue current regimen as client [...] May fill . Discussed r/b/se in length. 12/25/2024 ADHD (attention deficit hyperactivity disorder) (ICD-10 - F90.9) Discussed controlled sub. PDMP checked with no concerns. May fill . Discussed r/b/se in length. 12/25/2024 Medication monitoring encounter (ICD-10 - Z51.81) 08/15/2024 Medication monitoring encounter (ICD-10 - Z51.81) [...] 24-hour crisis hotline ([facility]), refer to the closest emergency [...] 24-hour crisis hotline ([facility]), refer to the closest emergency [...] assess appearance, affect, AIMS, or vital signs. 12/25/2024 Other Reasons, potential benefits, potential risks, interactions [...] Insured Coverage Start Date Coverage End Date [facility] Attn Claims Department [address] [place] [address] [id number] Joantimoteo Blossom Self - patient is the insured 2 [facility] Attn Claims Department [address] [place] [address] [id number] Blossom Wong Self - patient is the insured 2 Medical (General) History Medical History History ICD Code PCOS Factor V Scar tissue on lungs s/p COVID-19 Surgical History Surgery Date(Month/Year) Myringotomy 2003, 2005
--- OUTSIDE RECORDS SUMMARY | 2025-02-22 08:15 | XMS_ITS | Clinical Summary ---
Author Organization [facility] Address [address] [place] [address] Care Team Providers Care Geophysical Laboratory Supervisor Name Role Phone Unavailable Primary Care Provider [...]
--- OUTSIDE RECORDS SUMMARY | 2025-02-22 08:15 | XMS_ITS | Continuity of Care Document ---
Author Organization [facility] Address [address] [place] [address] [place] [address] Phone Care Team Providers Care Padder Name Role Phone Patten OD, Bienvenido Unavailable Unavailable Procedures Procedure Date Eye Exam & Treatment Eye Exam & Treatment Advance Directives Directive Yes / No Effective Date File Name No Information Encounters Encounter Description Practice Location Reason(s) For Visit Diagnoses Date Provider Providers Copied on Encounter [facility], [address] [place] [address] [address], [place], [place], [id number], tel:[phone] [facility] No Information Feb-1 3-200 8 Patten OD Bienvenido. [address] [facility] , [address], [place], [address], [place]. tel:[phone] [facility], [address] [place] [address] [address], [place], [place], [id number], tel:[phone] [facility] No Information Feb-0 7-200 7 Patten OD Bienvenido. [address] [facility] , [address], [place], [address], [place]. tel:[phone] Family History Family Member Type Diagnosis Age At Onset No Information Payers Payer name Insurance type Covered constitution party ID Authoriza tion(s) Medicaid [employer] [id number] Social History Type Description Quantity Date Captured [...]
--- OUTSIDE RECORDS SUMMARY | 2025-02-22 08:15 | XMS_ITS | Clinical Summary ---
Author Organization [facility] Address [address] [facility] [place] [address] Care Team Providers Care Buckle Strap Puncher Name Role Phone Unavailable Primary Care Provider Unavailabl e Source Comments [facility],non-owned Affiliates and Associated Physician Practices is amultiple site organization consisting of ambulatory clinics and hospital sitesin [place], [place], [place] and [place]. This disclosure is being madepursuant to the Care Everywhere program and may not contain all information available regarding this patient. Last updated 18.[facility] Compact Particle [employer] Allergies Active Allergy Reactions Criticality Noted Date Comments Penicillins Rash Low 01/08/2012 Medications * Be aware that medications may not be up to date on this document. Alwaysverify current medications with the patient. Montelukast Sodium (SINGULAIR PO) Take by mouth once daily. Active albuterol HFA (PROVENTIL;MARY DYLAN;PROAIR) 108 (90 BASE) MCG/ACT inhaler Inhale 2 [...] at Not on file Legal Sex Female 1:33 PM CEMENT BLOCK MAKER Gender Identity Not on file Sexual Orientation [...] Health Maintenance Due Date Last Done Comments HIV SCREENING 2015 HPV VACCINE (1 - [...] on patient's age to complete this topic Insurance MEDICAID - [place]
--- OUTSIDE RECORDS SUMMARY | 2025-02-22 08:15 | XMS_ITS | Clinical Summary ---
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 [address] [place] [address] Health Maintenance Due Date Last Done Comments HPV VACCINES (1 - 3-dose series) 2015 DTAP/TDAP/TD VACCINES (1 - Tdap) 2019 HEPATITIS B VACCINES (1 of 3 - 19+ 3-dose series) 07/17 CERVICAL CANCER SCREENING 2021 HPV/Cotest (21-29) 2021 PAP SMEAR 2021 INFLUENZA VACCINE (#1) 2025 Insurance MEDICAID Care Teams Asphalt Plant Laborer Relationship Specialty Start Date End Date Louis Venegas MD [address] [facility] [place] [address] PCP - General Obstetrics and Gynecology 06/25/20
--- OUTSIDE RECORDS SUMMARY | 2025-02-22 08:15 | XMS_ITS | Data Portability ---
Author Organization [facility] [place] Address [address] [place] [place] [address] Care Team Providers Care Sword Swallower Name Role Phone PINKYAUDREYJOSE Primary Care Provider [phone] Assessment Encounter Date Assessment Date Assessment LastModified by Organization Details LastModified Time 05/01/2022 05/01/2022 check labs, consider metformin after reviewing labs, discussed traditional pop f/u by phone in 3 months or sooner if needed. discussed pap next year? Not available 05/01/2022 12:49:57 09/02/2022 09/02/2022 await blood work and US, will schedule with LM [employer] MEMBER after reviewed Not available 09/02/2022 12:46:10 Plan of Treatment Reminders Order Date Submit Date Provider Last Modified By Organization Details Last Modified Time Details Appointments None recorded. Lab culture, urine 2021 022 [facility] (Lab), [address], [place], [address], 06:15:52 test, urine 2021 022 [email or web address] 1 [place], [address], [place], [address], 12:21:57 urinalysis , dipstick 2021 022 [email or web address] 1 [place], [address], [place], [address], 2 12:23:25 Referral None recorded. Procedures None recorded. Surgeries None recorded. Imaging US, pelvis 2022 023 [email or web address] [place], [address], [address], [place], [address], 3 20:28:26 US, pelvis, complete 2022 023 [email or web address] 1 [facility], [address], [place], [address], 3 19:42:48 US, pelvis 2020 021 [email or web address] [place], [address], [place], [address], 17:12:47 US, abdomen 2020 021 [email or web address] Not available 14:45:07 Medication Orders Katerine 0.35 mg tablet 2021 022 YAO [facility] [place], [address], 2 12:50:31 Slynd 4 mg (28) tablet 2020 021 [email or web address] [facility], [address] [place], [address], 3 12:26:18 Patient TargetsNo targets recorded. Patient [...] t Abnor mal: No Resul larisa Lab: [facility] [address] [facility] [address] Tel: CULTU RE ----- ----- ----- --- No growt h in 1 day (dete ction level of 10,00 0 colon ies / ml.) Not Available [facility] [address] [place], [address], 05/03/2022 06:15:52 05/01/20 22 05/01/2022 urina lysis , dipst ick Leukocytes +2 Not Available [facility] [address], [place], [address], 05/01/2022 12:22:18 05/01/20 22 05/01/2022 urina lysis , dipst ick Nitrite normal Not Available [place] [address], [place], [address], 05/01/2022 12:22:18 05/01/20 22 05/01/2022 urina lysis , dipst ick Urobilinogen normal Not Available [facility] [email or web address] [address], [place], [address], 05/01/2022 12:22:18 05/01/20 22 05/01/2022 urina lysis , dipst ick Protein trace Not Available [place] [address], [place], [address], 05/01/2022 12:22:18 05/01/20 22 05/01/2022 urina lysis , dipst ick pH 5 Not Available [place] [address], [place], [address], 05/01/2022 12:22:18 05/01/20 22 05/01/2022 urina lysis , dipst ick Blood +++ Not Available [place] [address], [place], [address], 05/01/2022 12:22:18 05/01/20 22 05/01/2022 urina lysis , dipst ick Specific Stuart 1.000 Not Available [facility] [address], [place], [address], 05/01/2022 12:22:18 05/01/20 22 05/01/2022 urina lysis , dipst ick Ketone normal Not Available [place] [address], [place], [address], 05/01/2022 12:22:18 05/01/20 22 05/01/2022 urina lysis , dipst ick Bilirubin normal Not Available [facility] [address], [place], [address], 05/01/2022 12:22:18 05/01/20 22 05/01/2022 urina lysis , dipst ick Glucose normal Not Available [place] [address], [place], [address], 05/01/2022 12:22:18 05/01/20 22 05/01/2022 urina lysis , dipst ick Appearance normal Not Available [facility] [address], [place], [address], 05/01/2022 12:22:18 05/01/20 22 05/01/2022 urina lysis , dipst ick Color normal Not Available [place] [address], [place], [address], 05/01/2022 12:22:18 05/01/20 22 05/01/2022 pregn tylor test, urine HCG negati ve Not Available [place] [address], [place], [address], 05/01/2022 12:21:01 09/02/19 23 09/02/2022 DHEA SULFA TE DHEA-sulfate 183 ug/dL Femal e Range s Age(y ) Range (ug/d L) 10-15 34-28 0 15-20 65-36 8 20-25 148-4 07 25-35 99-34 0 35-45 61-33 7 45-55 35-25 6 55-65 19-20 5 65-75 9-246 > 75 12-15 4 Not Available [facility] (Lab) [address] [facility], [place], [address], 09/06/2022 16:18:00 09/02/19 23 09/02/2022 ESTRA DIOL estradiol 118.0 pg/mL This assay was perfo rmed using [employer] ratio n reage nts and test kits. Value s obtai mark with other assay metho ds or kits canno t be used inter [facility] eay . Femal e Estra diol Range s: Folli cular phase 12.4- 233 pg/mL Ovula tion phase 41.0- 398 pg/mL Lutea l phase 22.3- 341 pg/mL Postm enopa usal< 5-138 pg/mL Healt hy Pregn ant Women 1st Trime ster1 54-32 43 pg/mL 2nd Trime ster1 561-2 1280 pg/mL 3rd Trime ster8 525-> 14766 pg/mL Not Available [facility] (Lab) [address] [facility], [place], [address], 09/06/2022 16:18:00 09/02/19 23 09/02/2022 PROGE STERO NE progesterone 7.60 NG/mL This assay was perfo rmed using [employer] n reage nts and test kits. Value s obtai mark with other assay metho ds or kits canno t be used inter [facility] e[facility] . Femal e Proge stero ne Range s: Folli cular phase 0.06- 0.89 ng/mL Ovula tion phase 0.12- 12.00 ng/mL Lutea l phase 1.83- 23.90 ng/mL Postm enopa usal< 0.05- 0.13 ng/mL Healt hy Pregn ant Women 1st Trime ster1 1.0-4 4.30 2nd Trime ster2 5.40- 83.30 3rd Trime ster5 8.70- 214.0 0 Not Available [facility] (Lab) [address] [facility], [place], [address], 09/06/2022 16:18:01 09/02/19 23 09/02/2022 PROLA CTIN prolactin, total 12.80 NG/mL 4.79-2 3.30 This assay was perfo rmed using [employer] n reage nts and test kits. Value s obtai mark with other assay metho ds or kits canno t be used inter [facility] . Not Available [facility] (Lab) [address] [place], [address], 09/06/2022 16:18:01 09/02/19 23 09/02/2022 LH (LUTE NIZIN G HORMO NE) LH 9.3 mIU/m L This assay was perfo rmed using [employer] reage nts and test kits. Value s obtai mark with other assay metho ds or kits canno t be used inter [facility] . Femal es Mid-F ollic ular: 2.4-1 2.6 mIU/m L Mid-C ycle: 14.0- 95.6 mIU/m L Mid-L uteal : 1.0-1 1.4 mIU/m L Postm enopa use: 7.7-5 8.5 mIU/m L Not Available [facility] (Lab) [address] [place], [address], 09/06/2022 16:18:01 09/02/19 23 09/02/2022 FSH FSH 3.6 mIU/m L This assay was perfo rmed using [employer] reage nts and test kits. Value s obtai mark with other assay metho ds or kits canno t be used inter [facility] . Femal es Folli cular : 3.5-1 2.5 mIU/m L Ovula tion: 4.7-2 1.5 mIU/m L Lutea l: 1.7-7 .7 mIU/m L Postm enopa use: 25.8- 134.8 mIU/m L Not Available [facility] (Lab) [address] [facility], [place], [address], 09/06/2022 16:18:02 09/02/19 23 09/02/2022 TSH, REFLE X FREE T4 TSH 1.08 uIU/m L 0.30-5 .33 Not Available [facility] (Lab) [address] [facility], [place], [address], 09/06/2022 16:18:02 09/02/19 23 09/02/2022 HEMOG LOBIN [...] >8.0% Actio n sugge sted Not Available [facility] (Lab) [address] , [place], [address], 09/06/2022 16:18:03 09/02/19 23 09/02/2022 HUMAN SEX HORMO NE NEISHA NG GLOBU DYLAN sex hormone binding globulin 24.0 nmole s/L 18.2-1 35.5 Not Available [facility] (Lab) [address], [place], [address], 09/06/2022 16:18:03 09/02/19 23 09/02/2022 TESTO STERO NE, FREE( DIALY SIS) AND TOTAL (LC/M S/MS) testosterone , total 15 NG/dL 2-45 For addit ional klarissa quiñonez e refer to http: //konrad pérezque stdia christian ics.c om/fa q/Tot alTjaja Gonzalez [facility] (This link is being provi ded for infor matio nal/ educa johana l purpo ses only. ) This test was devel oped and its zoltan tical perfo rmanc e daron cteri stics have been deter mined by [employer]. It has not been clear ed or appro jessie by the FDA. This assay has been valid ated pursu ant to the CLIA regul ation s and is used for clini joanna purpo ses. Not Available [facility] (Lab) [address] [place], [address], 09/06/2022 16:18:03 09/02/19 23 09/02/2022 TESTO STERO NE, FREE( DIALY SIS) AND TOTAL (LC/M S/MS) testosterone , free 2.2 pg/mL 0.1-6. 4 This test was devel oped and its zoltan tical perfo rmanc e daron cteri stics have been deter mined by [employer]. It has not been clear ed or appro jessie by the FDA. This assay has been valid ated pursu ant to the CLIA regul ation s and is used for clini joanna purpo ses. Perfo rming Organ izati on Maria Elena bonillamariana n: Site ID: [id number] Name: [employer]-Dada [facility] Addre ss: [id number] [address] [place] [address] Direc tor: John strong M.D. Not Available [facility] (Lab) [address] [place], [address], 09/06/2022 16:18:03 09/02/19 23 09/02/2022 17-OH PROGE [...] stics have been deter mined by [facility] [employer] . It has not been clear ed or appro jessie by FDA. This assay has been valid ated pursu ant to the CLIA regul ation s and is used for clini joanna purpo ses. Perfo rming Organ izati on Infor matio n: Site ID: [id number] Name: [facility]/Dada guevara [facility] , Addre ss: [id number] [place] [address] Direc tor: Nikki gtz MD,Ph D,JENNY Not Available [facility] (Lab) [address] [facility], [place], [address], 09/06/2022 16:18:04 06/04/20 21 06/04/2021 US, pelvi s No observ ation record ed. tonia [place] [address], [place], [address], 06/05/2021 14:04:49 06/04/20 21 06/04/2021 US, pelvi s No observ ation record ed. YAO [address] [facility], [place], [address], 06/05/2021 17:40:01 09/07/19 23 09/07/2022 US, pelvi s No observ ation record ed. [email or web address] [place] [address], [place], [address], 09/07/2022 17:10:08 09/07/19 23 09/07/2022 US, deidre s No observ ation record ed. [email or web address] [address], [place], [address], 09/10/2022 13:16:27 Result Notes None recorded. 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 14:18:44 Bleeding 034180336 Completed 201811/06/2020 Abnormal vaginal bleeding ;Recorde d Elsewher e: No Locat ion: [facility] S ource: [employer] dada: N Stas ce ID: [id number] Tim lable Time: 02:30:00 PM Aparna rodriguez [facility] 14:17:[address] Concept Completed 201811/06/2020 Encntr for routine child health exam w/o abnormal findings ;Recorde d Elsewher e: No Locat ion: [facility] S ource: [employer] dada: N Stas ce ID: [email or web address] Tim lable Time: 02:30:00 PM Aparna rodriguez [facility] 14:17:55 Pain in female genitali a Completed 201811/06/2020 Dysmenor christie;Rec orded Elsewher e: No Locat ion: [facility] S ource: [employer] dada: N Stas ce ID: 0001 Tim lable Time: 09:45:00 AM Aparna rodriguez [facility] 14:17:53 Uses combined oral contrace ption [id number] Completed 201711/06/2020 Encounte r for surveill ance of contrace ptive pills;Pr actice ID: [id number] Aparna rodriguez, [facility] [address] 14:17:[address] Concept Completed 201811/06/2020 Encntr for vest presser exam (general ) (routine ) w/o abn findings ;Practic e ID: [id number] Aparna rodriguez, [facility] 1 14:17:57 Problem Notes None recorded. Medical Equipment None Reported. Allergies Allergen ID Allergen Name Allergen Category Reaction Reaction Severity Criticality Documentation Date Start Date Code Code System Note Provider Name and Address Organization Details Recorded Time 1423 Product containin g penicilli n (product) medicatio n Not available Not available Not available 03/08/2020 23322 8001 SNOMED Maggie Jackson [facility] 0 11:04:35 Medications Name Sig Start Date Stop Date Status Note LastModified by Organization Details LastModified Time clindamyc in HCl 300 mg capsule 11/06 completed Not Available Not Available Not [...] Prescrib ed Elsewher e: No Locat ion: [facility] M odify By: natividad jo DateTime : 02/12/20 09:45:00 [...] Prescrib kranthi Santoro e: No Locat ion: [facility] M odify By: natividad jo DateTime : 08/11/20 18 08:30:00 AM Not Available Not Available Not [...] Body mass index (BMI) Body weight Systolic And Diastolic Provider Name and Address Organization Details Last Updated DateTime 09/02/2022 170.18 cm 35.6 kg/m2 568919.47 g 129/85 mm[Hg] Nyeda Teixeira [facility] 09/02/2022 12:25:54 Date Recorded Body height Body mass index (BMI) Body weight Systolic And Diastolic Provider Name and Address Organization Details Last Updated DateTime 05/01/2022 170.18 cm 36 kg/m2 410298.25 g 119/84 mm[Hg] Aparna Roth [facility] 05/01/2022 12:14:54 Date Recorded Body height Body mass index (BMI) Body mass index (BMI) [Percentile] Per age and sex Body weight Systolic And Diastolic Provider Name and Address Organization Details Last Updated DateTime 05/28/2021 170.18 cm 34.1 kg/m2 96 % 06491.1 4 g 131/70 mm[Hg] Jasmine Paul [facility] 09:50:49 Social History Question Answer Notes LastModified by Organizat ion Details LastModified Time Tobacco Smoking Status Never Smoker Alison Sumner [facility] 09/02/2022 12:11:03 Do You Have An Advance Directive? No [email or web address] Information n ot available 11/06/2020 If You Are , What Was Your Level Of Alcohol Consumption Prior To ? Occasional [email or web address] Information not available 09/02/2022 Are You Blind Or Do You Have Difficulty Seeing? No [email or web address] Information n ot available 11/06/2020 What Is Your Level Of Caffeine Consumption? Occasional [email or web address] Information not available 11/06/2020 How Much Tobacco Do You Chew? None [email or web address] Information not available 11/06/2020 In The 14 Days Before Symptom Onset, Have You Had Close Contact With A Laboratory-confirm ed COVID-19 While That Case Was Ill? No [email or web address] Information n ot available 11/06/2020 In The 14 Days Before Symptom Onset, Have You Had Close Contact With A Person Who Is Under Investigation For COVID-19 While That Person Was Ill? No [email or web address] Information not available 11/06/2020 Have You Been To An Area Known To Be High Risk For COVID-19? No [email or web address] Information not available 11/06/2020 Are You Deaf Or Do You Have Serious Difficulty Hearing? No Information not available 11/06/2020 What Type Of Diet Are You Following? REGULAR [email or web address] Information n ot available 11/06/2020 What Is The Highest Grade Or Level Of School You Have Completed Or The Highest Degree You Have Received? FY70914-5 [email or web address] Information not available 11/06/2020 Are There Any Guns Present In Your Home? No [email or web address] Information not available 11/06/2020 Do You Use Protection During Sex? No [email or web address] Information not available 11/06/2020 Do You Use Your Seat Belt Or Car Seat Routinely? Yes [email or web address] Information not available 11/06/2020 Do You Have Smoke And Carbon Monoxide Detectors In Your Home? Yes [email or web address] Information not available 11/06/2020 How Much Tobacco Do You Smoke? No [email or web address] Information not available 11/06/2020 Do You Use Sunscreen Routinely? Yes [email or web address] Information not available 11/06/2020 Has Tobacco Cessation Counseling Been Provided? No Information not available 09/02/2022 Have You Used IV Drugs? No [email or web address] Information not available 11/06/2020 Do You Have Difficulty Walking Or Climbing Stairs? No [email or web address] Information not available 09/02/2022 Sex: Unknown Functional Status Question Answer Note LastModified by Organizat ion Details LastModified Time Do you use any illicit or recreational drugs? No [email or web address] Information not available 11/06/2020 Do you or have you ever used any other forms of tobacco or nicotine? No [email or web address] Information not available 09/02/2022 What is your level of alcohol consumption? None jgumber Information not available 03/12/2020 Are you able to walk? YESWOREST [email or web address] Information not available 11/06/2020 Are you able to care for yourself? 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 No [email or web address] Information not available 09/02/2022 What is your exercise level? Moderate [email or web address] Information not available 11/06/2020 Mental Status Question Answer Note LastModified by Organization D etails LastModified Time Do you feel stressed (tense, restless, nervous, or anxious, or unable to sleep at night)? [id number] Information not available 11/06/2020 Family History Relationship Description Onset Age of this Age Resolved Age Notes LastModified by Organization Details LastModified Time Mother Hypercholest erolemia jgumber Not available 2019 11:04:11 Mother Hypertensive disorder jgumber Not available 2019 11:04:23 Sister Cyst of ovary [email or web address] Not available 2022 12:11:02 Sister Factor V Leiden mutation [email or web address] Not available 2022 12:11:02 Notes:Mother: Hypertension, High cholesterol Medical History Condition Response Allergies (Food, seasonal, environmental ) N Other N Breast Cancer N Drug/Latex Allergies/Reactions N Blood Transfusion N Dermatologic Disorders N Lung Disease N Defects or Inherited Disease Y Breast Problem N Gestational Diabetes N Hematologic disorders N Anesthesia Complications N History of STI N Deep Vein Thrombosis N Polycystic ovary syndrome Y Anxiety Disorder N Autoimmune disease N Arthritis N Infertility N Polyps N Acid Reflux (GERD) N History of abnormal pap N Cancer N Stroke N Varicosities N Neurologic/Epilepsy N Endometriosis N High Cholesterol N Headaches N Fibromyalgia N Kidney Disease N Heart Problems N Kidney or Bladder Problems N Thyroid Problems N GI Problems N Eating Disorder [...] SNOMED-CT Code Diagnosis ICD10 Code Diagnosis Note [id number] Diana Carrion [address] [address] 03/12/2020 09:33:08 03/12/2020 10:51:41 Abnormal uterine bleeding 0254761662 9100 N93.9 This has been a problem for a couple years. Will repeat labs and schedule u/s that she was unable to complete. Then she will return for follow up to discuss results and plan. [place]. [id number] Louis Venegas MD [place] [address] [address] 03/13/2020 11:32:45 03/13/2020 13:06:16 Abnormal uterine bleeding 5169317945 9100 N93.9 33268 MD Debbi Villalta [address] [address] 03/23/2020 10:40:49 03/23/2020 12:05:58 Abnormal uterine bleeding 2600974461 9100 N93.9 This patient is a 19-year-ol [...] given detailed instructio ns and precaution s. [id number] [facility] [address],[place] [address] 11/06/2020 13:45:21 11/06/2020 15:32:11 Contraception care management 802908559 Z30.9 [address] [place] [address] [address] 05/28/2021 09:40:18 05/28/2021 11:49:55 Pain in pelvis 86334049 R10.2 check us, transabdom inal only, will f/u pending results Dysmenorrhea 753856252 N 94.6 continue slynd, [place] [id number] Louis Venegas MD [place] [address],[place] [address] 06/04/2021 15:01:09 06/04/2021 15:32:05 Pain in pelvis 94675117 R10.[id number] [facility] [address] [place] [address] 05/01/2022 11:50:23 05/01/2022 13:29:04 Irregular periods 12611180 N92.6 [id number] Suzanne Arvizu CNM [place] [address],[place] [address] 09/02/2022 12:10:54 09/02/2022 13:54:32 Polycystic ovary syndrome 834162717 E28.2 [id number] Louis Venegas MD [place] [address] [address] 09/07/2022 14:24:05 09/07/2022 15:23:32 Pain in pelvis 55587996 R10.2 Health Concerns Section Related Observation LastModified by Organization Detai ls LastModified Time None Recorded Concern Status LastModified by Organization Details LastModified Time None Recorded Advance Directives Directive N: Payers Insurance Date Sequence Insurance Name Policy Number Policy Stroud Covered Member ID Stroud Member ID Guarantor Name 09/07/2022 1 [facility] PRIOR TO 02/13/2021 (MEDICAID REPLACEMENT - HMO) Blossom Mallupe [id number] Blossom Mallupe 11/03/2022 1 [facility] ON OR AFTER 02/13/21 (MEDICAID REPLACEMENT - HMO) Blossom Wong [id number] Blossom Wong Notes Date Note Type Note Provider Name and Address Organization Details Recorded Time 05/28/2021 text/html pt spoke to telesales supervisor about Slynd, rec non hormonal but pt has very painful periods and is happy on slynd, reviewed risk of blood clot but pt wants to stay on it. getting a new telesales supervisor. feels like he isn't listening to her. also c/o pain monthly on right side last 2 months was worse this month hx pcos and cysts, not sexually active Suzanne Arvizu CNM [address], [place], [address], [facility] 05/28/2021 11:48:25 05/01/2022 text/html pcos, hx ovarian cysts, periods have been very irregular and spotty on the slynd, 30 lb weight gain in a month, seeing pcp, not sexually active, factor V Suzanne Arvizu CNM [address], [place], [address], [facility] 05/01/2022 12:50:58 OBGyn Episode No OBEpisode recorded.
--- OUTSIDE RECORDS SUMMARY | 2025-02-22 08:15 | XMS_ITS | Clinical Summary ---
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 Gender Identity Not on file Sexual Orientation [...] 5 season) 2024 01/25/2023, 05/24/2022 Influenza Vaccine (Season Ended) 2025 05/01/2023, 09/14/2017, 08/25/2016, Additional history exists DTaP/Tdap/Td Vaccine (8 - Td or Tdap) 01/19/2032 01/18/2022, 12/08/2011, 12/01/2005, Additional history exists Hepatitis B Screening Completed 05/13/2001 , 2000, 2000 Pneumococcal vaccine <65 Completed 002, 02/11/2001, 2000, Additional history exists Varicella Vaccines Completed 06/04/2008, 08/12/2001 HPV Vaccines Completed 06/08/2013, 01/15, 12/07/2012 Insurance [id number] [id number] Care Teams Finance Vice President Relationship Specialty Start Date End Date Patricia Almaraz MD PCP - General Family Practice 07/28/22
--- NOTE | 2025-02-23 10:35 | P.PCNPFT_ITS ---
PFT Procedure Performed PFT Procedure Performed Spirometry with Pre/Post Bronchodilator Plethysmography (Lung Vol) Diffusing Cap (DLCO) Flow Vol Loop PFT Interpretation This is a pulmonary function test with pre and post-bronchodilator spirometry, plethysmography and diffusing capacity. The test was performed and results interpreted in accordance with the 2019 and 2005 ATS/ERS Task Force guidelines respectively using the Global Lung Function Initiative-2012 reference equations. Patient demonstrated good effort and cooperation. Reproducibility criteria were met. The quality of the pre bronchodilator spirometry maneuver was Grade A and post bronchodilator spirometry maneuver was Grade A. Findings: Spirometry: The contour the inspiratory and expiratory flow tracing are normal. The pre bronchodilator FVC is 4.57 L, 108% predicted. The pre bronchodilator FEV1 is 3.40 L, 94% predicted. The pre bronchodilator FEV1: FVC ratio is 74%. The post bronchodilator FVC is 4.46 L, representing a 2% decrease. The post bronchodilator FEV1 is 3.67 L, representing an 8% increase. The post bronchodilator FEV1: FVC ratio is 82%. Plethysmography: The total lung capacity is 5.95 L, 108% predicted. The functional residual capacity is 2.90 L, 96% predicted. The residual volume is 1.13 L, 80% predicted. Diffusing capacity: The diffusing capacity unadjusted for hemoglobin and carboxyhemoglobin is 25.4, 95% predicted. The diffusing capacity adjusted for alveolar volume is 4.64, 95% predicted. In comparison to previous pulmonary function testing on 04/23/2022, the post bronchodilator FVC is unchanged from 4.97 L to 4.46 L. The post bronchodilator FEV1 is unchanged from 4.01 L to 3.67 L. The total lung capacity is unchanged from 5.68 L to 5.95 L. The functional residual capacity is increased from 2.47 L to 2.90 L. The residual volume is increased from 0.83 L to 1.13 L. The diff using capacity unadjusted for hemoglobin and carboxyhemoglobin is unchanged from 26.0 to 25.4. The diffusing capacity adjusted for alveolar volume is unchanged from 5.28 to 4.64. Impression: There is a mild obstructive abnormality with a normal FEV1. There is no significant improvement after inhaling a single dose of albuterol. the lung volumes are normal. The diffusing capacity is normal. In comparison to previous pulmonary function testing on 04/23/2022 there has been a greater than anticipated time dependent increase in the functional residual capacity and residual volume with no significant change in the FVC, FEV1, total lung capacity, and diffusing capacity. Clinical correlation is recommended. There are no prior studies for comparison
== END 2025-02-22 08:10 | disposition home or self-care (01) ==
PROVIDERS: PCP Family Medicine; Visit Provider Physician Assistant
DX: R06.09 Other forms of dyspnea (principal); R94.2 Abnormal results of pulmonary function studies
CPT/HCPCS: 94060; 94726; 94729

== ENCOUNTER 2025-04-13 17:57 | Emergency (ER) | payer OTHER, SELFPAY ==
--- OUTSIDE RECORDS SUMMARY | 2007-09-28 10:01 | XMS_ITS | Continuity of Care Document ---
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 [address] [facility] , [address], [place], [address], [place]. tel:[phone] [facility], [address] [place] [address] [address], [place], [place], [id number], tel:[phone] [facility] No Information Feb-0 7-200 7 Patten OD Bienvenido. [address] [facility] , [address], [place], [address], [place]. tel:[phone] Family History Family Member Type Diagnosis Age At Onset No Information Payers Payer name Insurance type Covered libertarian ID Authoriza tion(s) Medicaid [facility] [id number] Social History Type Description Quantity Date Captured Comments Sex Female Smoking Status No Information Chief Complaint And Reason For Visit No Information Reason For Referral Reason For Referral No Information History Of Present Illness Encounter Date Complaint History Of Prese nt Illness No Information Functional Status Date Functional Assessmen t No Information Instructions Date Instruction Additional Infor mation No Information Assessments Type Assessment Date No Information Patient Care Teams Name Effective Dates (start - stop) Status Members No Information
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
--- OUTSIDE RECORDS SUMMARY | 2025-04-13 17:59 | XMS_ITS | Clinical Summary ---
Author Organization 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 Oncology and Hematology - [place] [address] [facility] [address] [place] [address] Shahriar Regalado MD [address] [facility] [address] [place] [address] Health Maintenance Due Date Last Done Comments HPV VACCINES (1 - 3-dose series) 2015 DTAP/TDAP/TD VACCINES (1 - Tdap) 2019 HEPATITIS B VACCINES (1 of 3 - 19+ 3-dose series) 07/17 CERVICAL CANCER SCREENING 2021 HPV/Cotest (21-29) 2021 PAP SMEAR 2021 INFLUENZA VACCINE (#1) 2025 Insurance MEDICAID Care Teams Glaze Wiper Relationship Specialty Start Date End Date Louis Venegas MD [facility] [place], [place] [id number] PCP - General Obstetrics and Gynecology 06/25/20
--- OUTSIDE RECORDS SUMMARY | 2025-04-13 17:59 | XMS_ITS | Clinical Summary ---
Author Organization [facility] Address [address] [place] [address] Care Team Providers Care Ob Tech Name Role Phone Unavailable Primary Care Provider Unavailabl e Source Comments [facility],non-owned Affiliates and Associated Physician Practices is amultiple site organization consisting of ambulatory clinics and hospital sitesin [place], [place], [place] and [place]. This disclosure is being madepursuant to the Care Everywhere program and may not contain all information available regarding this patient. 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
--- OUTSIDE RECORDS SUMMARY | 2025-04-13 17:59 | XMS_ITS | Clinical Summary ---
Author Organization [facility] Address [address] [place] [address] Care Team Providers Care Escort Blind Name Role Phone Unavailable Primary Care Provider [...] Comments Hepatitis C Virus (HCV) Screening 2000 SARS-COV-2 Immunization ( season) 2024 Influenza Immunization (#1) 04/16/202508/18, 08/25/2016, 2015, Additional history exists Respiratory Syncytial Virus (RSV) Immunization (Adult) (1 [...]
--- OUTSIDE RECORDS SUMMARY | 2025-04-13 17:59 | XMS_ITS | Patient Health Record ---
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 Name Role Phone Richelle Wong Primary Care Provider Connie Peck [phone] Allergies Allergen (clinical drug ingredient) Drug/Non Drug Allergy documented on EMR Reaction Allergy Type Onset Date Status Penicillin Unknown Drug Allergy Active Reason For Referral No Information Medications Medication SIG (Take, Route, Frequency, Duration) Notes Start Date End Date Status Escitalopram Oxalate 10 MG 1 tablet Orally Once a day; Duration: 30 days Active Vyvanse 60 MG 1 capsule in the morning Orally Once a day; Duration: 30 days 04/13/2025 Active hydrOXYzine HCl 10 MG 1-2 tablet as need ed for sleep Orally Once a day; Duration: 30 days Active Amphetamine-Dextroamphe tamine 10 MG 1 tablet Orally daily; Duration: 30 days in the afternoon 04/04/2025 Active Vyvanse 50 MG 1 capsule in the morning Orally Once a day; Duration: 30 days 09/14/2024 Active Progesterone 100 MG as directed Orally hasn't be en taking, but will be back on soon 01/24/24 Active Aspirin 81 MG 1 tablet Orally Once a day; Duration: 30 day(s) Active Dulera 200-5 MCG/ACT as directed Inhalation Active Social History Tobacco Use: Social History Observation Description Date Details (start date - stop date) Never Smoker NA - NA Sex Assigned At : Social History Observation Description Sex Assigned At Female Dont use, Tobacco Use/Smoking Question Answer Notes Are you a nonsmoker Tobacco Control (Standard) Question Answer Notes Tobacco use: Nonsmoker Additional Findings: Tobacco non-user Current no nsmoker 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 Problems Problem Type SNOMED Code ICD Code Onset Dates Problem Status W/U Status Risk Notes Problem Generalized anxiety disorder (F41.1) Active confirmed Problem Depression (823946765) Depression (F32.9) Active confirmed Problem Attention deficit hyperactivity disorder (159943044) ADHD (attention deficit hyperactivity disorder) (F90.9) Active confirmed Encounters Encounter Location Date Provider Diagnosis [address] [address] 07/03/2024 Richelle Wong Depression F32.9 and ADHD (attention deficit hyperactivity disorder) F90.[address] [address] 07/14/2024 Connie Peck ADHD (attention deficit hyperactivity disorder) F90.9 and Depression F32.[address] [address] 12/20/2024 Richelle Wong ADHD (attention deficit hyperactivity disorder) F90.[address] [address] 03/05/2025 Richelle Wong Depression F32.9 ; ADHD (attention deficit hyperactivity disorder) F90.9 and Generalized anxiety disorder F41.[address] [address] 03/05/2025 Richelle Wong [address] [address] 07/20/2024 Richelle Wong Generalized anxiety disorder F41.1 ; Depression F32.9 ; ADHD (attention deficit hyperactivity disorder) F90.9 and Medication monitoring encounter Z51.81 [facility] [address] [place] [address] 08/15/2024 Richelle Wong Generalized anxiety disorder F41.1 ; Depression F32.9 ; ADHD (attention deficit hyperactivity disorder) F90.9 and Medication monitoring encounter Z51.[address] [place] [address] 12/25/2024 Richelle Wong Generalized anxiety disorder F41.1 ; Depression F32.9 ; ADHD (attention deficit hyperactivity disorder) F90.9 and Medication monitoring encounter Z51.[address] [place] [address] 03/15/2025 Richelle Wong Generalized anxiety disorder F41.1 ; Depression F32.9 ; ADHD (attention deficit hyperactivity disorder) F90.9 and Medication monitoring encounter Z51.[address] [place] [address] 04/04/2025 Richelle Wong Generalized anxiety disorder F41.1 ; Depression F32.9 ; ADHD (attention deficit hyperactivity disorder) F90.9 and Medication monitoring encounter Z51.81 Assessments Encounter Date Diagnosis (ICD Code) Assessment Notes Treatment Notes Treatment Clinical Notes Section Notes 08/15/2024 Generalized anxiety disorder (ICD-10 - F41.1) Continue PRN Encouraged therapy 03/15/2025 Generalized anxiety disorder (ICD-10 - F41.1) Continue PRN Encouraged therapy 04/04/2025 Generalized anxiety disorder (ICD-10 - F41.1) Continue PRN Encouraged therapy 12/25/2024 Generalized anxiety disorder (ICD-10 - F41.1) Continue PRN Encouraged therapy 12/20/2024 ADHD (attention deficit hyperactivity disorder) (ICD-10 - F90.9) 03/05/2025 Depression (ICD-10 - F32.9) 07/14/2024 ADHD (attention deficit hyperactivity disorder) (ICD-10 - F90.9) 07/20/2024 Generalized anxiety disorder (ICD-10 - F41.1) Continue PRN Encouraged therapy 07/03/2024 Depression (ICD-10 - F32.9) 07/03/2024 ADHD (attention deficit hyperactivity disorder) (ICD-10 - F90.9) 07/20/2024 Depression (ICD-10 - F32.9) [place] agreement to continue current regimen as client reports doing well. 07/14/2024 Depression (ICD-10 - F32.9) 03/05/2025 ADHD (attention deficit hyperactivity disorder) (ICD-10 - F90.9) 12/25/2024 Depression (ICD-10 - F32.9) [place] agreement to continue current regimen as client reports doing well. 04/04/2025 Depression (ICD-10 - F32.9) [place] agreement to continue current regimen as client reports doing well. 03/15/2025 Depression (ICD-10 - F32.9) [place] agreement to continue current regimen as client reports doing well. 08/15/2024 Depression (ICD-10 - F32.9) [place] agreement to continue current regimen as client reports doing well. 08/15/2024 ADHD (attention deficit hyperactivity disorder) (ICD-10 - F90.9) Discussed controlled sub. PDMP checked with no concerns. May fill . Discussed r/b/se in length. 03/15/2025 ADHD (attention deficit hyperactivity disorder) (ICD-10 - F90.9) Discussed controlled sub. PDMP checked with no concerns. May fill . Discussed r/b/se in length. 04/04/2025 ADHD (attention deficit hyperactivity disorder) (ICD-10 - F90.9) Discussed controlled sub. PDMP checked with no concerns. May fill . Discussed r/b/se in length. 12/25/2024 ADHD (attention deficit hyperactivity disorder) (ICD-10 - F90.9) Discussed controlled sub. PDMP checked with no concerns. May fill . Discussed r/b/se in length. 03/05/2025 Generalized anxiety disorder (ICD-10 - F41.1) 07/20/2024 ADHD (attention deficit hyperactivity disorder) (ICD-10 - F90.9) Discussed controlled sub. PDMP checked with no concerns. May look to increase for concentration s/p cardiology appts if/as appropriate. Discussed r/b/se in length. 07/20/2024 Medication monitoring encounter (ICD-10 - Z51.81) 12/25/2024 Medication monitoring encounter (ICD-10 - Z51.81) 04/04/2025 Medication monitoring encounter (ICD-10 - Z51.81) 03/15/2025 Medication monitoring encounter (ICD-10 - Z51.81) 08/15/2024 [...] May also contact the 24-hour crisis hotline ([facility]), refer to the closest emergency [...] May also contact the 24-hour crisis hotline ([facility]), refer to the closest emergency [...] May also contact the 24-hour crisis hotline ([facility]), refer to the closest emergency [...] assess appearance, affect, AIMS, or vital signs. 03/15/2025 Other Reasons, potential benefits, potential risks, interactions [...] May also contact the 24-hour crisis hotline ([facility]), refer to the closest emergency [...] assess appearance, affect, AIMS, or vital signs. 04/04/2025 Other Reasons, potential benefits, potential risks, interactions [...] May also contact the 24-hour crisis hotline ([facility]), refer to the closest emergency [...] Insured Coverage Start Date Coverage End Date [facility] Attn Claims Department [address] [place] [address] [phone] [id number] Blossom Wong Self - patient is the insured 2 [facility] Attn Claims Department [address] [place] [address] [phone] Blossom Wong Self - patient is the insured 2 Medical (General) History Medical History History ICD Code PCOS Factor V Scar tissue on lungs s/p COVID-19 Surgical History Surgery Date(Month/Year) Myringotomy 2003, 2005
--- OUTSIDE RECORDS SUMMARY | 2025-04-13 17:59 | XMS_ITS | Clinical Summary ---
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 Gender Identity Not on file Sexual Orientation [...] season) 2024 01/25/2023, 05/24/2022 Influenza Vaccine (#1) 2025 , 09/14/2017, 08/25/2016, Additional history exists DTaP/Tdap/Td Vaccine (8 - Td or Tdap) 01/19/2032 01/18/2022, 12/08/2011, 12/01/2005, Additional history exists Hepatitis B Screening Completed 05/13/2001 , 2000, 2000 Pneumococcal vaccine <65 Completed 002, 02/11/2001, 2000, Additional history exists Varicella Vaccines Completed 06/04/2008, 08/12/2001 HPV Vaccines Completed 06/08/2013, 01/15, 12/07/2012 Insurance [id number] Care Teams Disaster Recovery Coordinator Relationship Specialty Start Date End Date Patricia Almaraz MD PCP - General Family Practice 07/28/22
[2025-04-13 19:14] VITALS: BP 127/85; PULSE 100; RESP 16; TEMP 36.3; O2SAT 100
[2025-04-13 23:48] VITALS: BP 138/90; PULSE 102; RESP 20; TEMP 36.8; O2SAT 100
[2025-04-13 23:51] VITALS: BP 138/90; PULSE 100; RESP 17; TEMP 36.8; O2SAT 100
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
[2025-04-14 00:50] LABS: BEDSIDEPREGUCG Negative (Negative)
[2025-04-14 01:00] LABS: BEDSIDEPREGUCG Negative (Negative)
[2025-04-14 01:48] VITALS: BP 136/84; PULSE 84; RESP 17; O2SAT 100
== END 2025-04-14 01:49 | disposition home or self-care (01) ==
PROVIDERS: Emergency Provider Physician Assistant; PCP Family Medicine
DX: S16.1XXA Strain of muscle, fascia and tendon at neck level, initial encounter (principal); E28.2 Polycystic ovarian syndrome; D68.2 Hereditary deficiency of other clotting factors; J45.909 Unspecified asthma, uncomplicated; F90.9 Attention-deficit hyperactivity disorder, unspecified type; F41.9 Anxiety disorder, unspecified; Z86.16 Personal history of COVID-19; Z79.899 Other long term (current) drug therapy; V49.40XA Driver injured in collision with unspecified motor vehicles in traffic accident, initial encounter
CPT/HCPCS: 70450; 72125; 72128; 72131; 81025; 99284

== ENCOUNTER 2025-06-01 14:15 | Outpatient (RCR) | payer OTHER, SELFPAY ==
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
--- NOTE | 2025-05-11 14:58 | OPREHPOC ---
Outpatient Therapy Plan of Care This is a Multidisciplinary Plan of Care that may contain components documented by all disciplines (PT, OT, and ST.) PT Problem 1 PT Problem #1 Knowledge Deficit PT Goal 1 Goal / Goal Update 1. Patient to demonstrate independence with HEP for improved self-reliance of symptom management. Target Visit 4 PT Problem 2 PT Problem #2 Pain PT Goal 1 Goal / Goal Update 1. Patient to decrease subjective reports of pain to <2/10 for improved ADL tolerance. 2. Patient to report an improvement in radiating symptoms by 50% to increase ability to perform ADLs. 3. Patient to report 50% reduction of MORGAN frequency and severity. 4. Patient to report 50% improvement in quantity and quality of sleep due to decreased neck pain. Target Visit 8 PT Problem 3 PT Problem #3 Impaired Range of Motion PT Goal 1 Goal / Goal Update 1. Patient to demonstrate an increase of cervical AROM flexion and rotation to WNL to show decreased muscle guarding. Target Visit 8
--- NOTE | 2025-05-25 08:44 | PCPTNOTE ---
Pt. did not show for her appointment this morning. Called pt. and spoke with her. She reported her mom had been in the hospital and was being discharged so she wasn't able to make it today. Reminded pt. of her upcoming next therapy appointment.
--- NOTE | 2025-06-05 09:24 | PCPTNOTE ---
Pt no called no showed for todays treatment session
--- NOTE | 2025-06-11 08:32 | PCPTNOTE ---
Pt no called, no showed for PT re-evaluation. Pt was called and voicemail was left.
--- NOTE | 2025-07-04 09:39 | PTOPDC ---
Assessment and note entered by Glen Vazquez, PT Evaluation Information Assessment Status Discharge - Pt Not Present ICD-10 Condition Codes (PT) Cervicalgia M54.2 Onset 04-13-25 Subjective Information Pt has no appointments scheduled attempted to contact via phone x2. Voicemail box full Assessment PT Clinical Summary Pt to be discharge due to account inactivity and unable to reach via phone. Plan of Care PT Services Indicated Yes
== END 2025-07-04 15:22 | disposition home or self-care (01) ==
LOC: ANHGOSHPT 14:15
PROVIDERS: PCP Family Medicine; Visit Provider Family Medicine
DX: M54.2 Cervicalgia (principal); M54.9 Dorsalgia, unspecified
CPT/HCPCS: 97110; 97112; 97140; 97161